=== PATIENT | male | born 1950 | race Caucasian/White ===

== ENCOUNTER → 2023-12-31 10:37 | Outpatient (REF) | payer MEDICARE, OTHER, SELFPAY ==
[2023-12-31 12:05] LABS: Hematocrit 42.7 % (39.0-52.0); Hemoglobin 14.4 g/dL (13.0-18.0); Mean Corp Hgb Conc. 33.7 g/dL (33.0-37.0); Mean Corpuscular Hgb 30.2 pg (27.0-31.0); Mean Corpuscular Volume 89.5 fL (80.0-94.0); Mean Platelet Volume 10.6 fL (7.4-10.4); Platelet Count 224 10^3/uL (130-400); Red Blood Cell Count 4.77 10^6/uL (4.70-6.10); Red Cell Dist. Width 13.6 % (11.5-14.5); White Blood Cell Count 9.2 10^3/uL (4.8-10.8)
[2023-12-31 12:37] LABS: ALT (SGPT) 21 U/L (0-50); AST (SGOT) 23 U/L (17-59); Albumin 4.1 g/dl (3.5-5.0); Alkaline Phosphatase 90 U/L (38-126); Blood Urea Nitrogen 25 mg/dl (9-20); Calcium 8.9 mg/dl (8.4-10.2); Carbon Dioxide 25 mmol/L (22-30); Chloride 108 mmol/L (98-107); Glucose 83 mg/dl (70-99); HDL Cholesterol 45 mg/dl; LDL Cholesterol, Calculated 74 mg/dl; Potassium 5.1 mmol/L (3.5-5.1); Sodium 139 mmol/L (135-145); Total Bilirubin 0.8 mg/dl (0.2-1.3); Total Cholesterol 135 mg/dl (50-199); Total Protein 7.1 g/dl (6.3-8.2); Triglyceride 81 mg/dl (10-149); Very Low Density Lipoprotein 16 mg/dl (0-30); eGFR > 60.00
[2023-12-31 13:07] LABS: PSA, Total - Screen 0.54 ng/ml (0.0-4.0)
[2023-12-31 13:48] LABS: TSH Reflex To Free T4 1.06 uIU/ml (0.47-4.68)
[2024-01-01 19:05] LABS: Hepatitis B Surface Antigen Negative (Negative)
[2024-01-01 19:23] LABS: Hepatitis B Core Ab, Total Negative (Negative); Hepatitis B Surface Antibody Negative
[2024-01-03 07:09] LABS: Quantiferon Mitogen minus NIL >10.00 IU/mL; Quantiferon NIL 0.01 IU/mL; Quantiferon Plus TB1 minus NIL 0.01 IU/mL (0.00-0.34); Quantiferon Plus TB2 minus NIL 0.01 IU/mL (0.00-0.34); Quantiferon TB Gold Plus Negative (Negative)
== END ==
LOC: REG 10:37
PROVIDERS: ATTENDING PHYSICIAN Specialist; FAMILY PHYSICIAN Family Medicine
DX: K50.10 Crohn's disease of large intestine without complications (principal); E78.2 Mixed hyperlipidemia; I10 Essential (primary) hypertension; Z00.00 Encounter for general adult medical examination without abnormal findings; Z12.5 Encounter for screening for malignant neoplasm of prostate
CPT/HCPCS: 36415; 80053; 80061; 84443; 85027; 86480; 86704; 86706; 87340; G0103

== ENCOUNTER → 2024-03-17 07:33 | Outpatient (REF) | payer MEDICARE, OTHER, SELFPAY ==
[2024-03-17 08:30] LABS: Hematocrit 44.4 % (39.0-52.0); Hemoglobin 15.2 g/dL (13.0-18.0); Mean Corp Hgb Conc. 34.2 g/dL (33.0-37.0); Mean Corpuscular Hgb 30.5 pg (27.0-31.0); Mean Corpuscular Volume 89.2 fL (80.0-94.0); Mean Platelet Volume 10.2 fL (7.4-10.4); Platelet Count 232 10^3/uL (130-400); Red Blood Cell Count 4.98 10^6/uL (4.70-6.10); Red Cell Dist. Width 13.5 % (11.5-14.5)
[2024-03-17 08:55] LABS: ALT (SGPT) 22 U/L (0-50); AST (SGOT) 23 U/L (17-59); Albumin 4.3 g/dl (3.5-5.0); Alkaline Phosphatase 90 U/L (38-126); Blood Urea Nitrogen 18 mg/dl (9-20); Calcium 9.4 mg/dl (8.4-10.2); Carbon Dioxide 24 mmol/L (22-30); Chloride 110 mmol/L (98-107); Direct Bilirubin 0.2 mg/dl (0.0-0.4); Glucose 78 mg/dl (70-99); Sodium 140 mmol/L (135-145); Total Bilirubin 0.8 mg/dl (0.2-1.3); Total Protein 7.1 g/dl (6.3-8.2); eGFR > 60.00
[2024-03-17 09:14] LABS: Erythrocyte Sed Rate 10 mm/hour (0-20)
[2024-03-17 10:24] LABS: % Eosinophils 2.5 % (0-6); % Immature Granulocytes 0.2 % (0-0.5); % Lymphocytes 46.1 % (20.5-51.1); % Monocytes 9.3 % (1.7-9.3); % Neutrophils 40.9 % (42.2-75.2); Absolute Basophils 0.1 10^3/uL (0-0.2); Absolute Eosinophils 0.2 10^3/uL (0-0.7); Absolute Lymphocytes 4.1 10^3/uL (1.2-3.4); Absolute Monocytes 0.8 10^3/uL (0.1-0.6); Absolute Neutrophils 3.7 10^3/uL (1.4-6.5); Nucleated Red Blood Cells % 0 % (-)
== END ==
LOC: RAD 07:33
PROVIDERS: ATTENDING PHYSICIAN Internal Medicine Cardiovascular Disease; FAMILY PHYSICIAN Family Medicine; REFERRING PHYSICIAN Nurse Practitioner Family
DX: I35.0 Nonrheumatic aortic (valve) stenosis (principal); R09.89 Other specified symptoms and signs involving the circulatory and respiratory systems; K50.10 Crohn's disease of large intestine without complications
CPT/HCPCS: 36415; 80048; 80076; 83993; 85025; 85652; 86140; 93880

== ENCOUNTER 2024-04-20 06:10 | Day surgery (SDC) | payer MEDICARE, OTHER, SELFPAY ==
[2024-04-20 07:04] VITALS: BP 130/71
[2024-04-20 07:12] VITALS: BMI 33.6
[2024-04-20 08:37] VITALS: BP 115/67
[2024-04-20 08:45] VITALS: BP 112/63
[2024-04-20 08:54] VITALS: BP 125/75
== END 2024-04-20 09:05 | disposition home or self-care (01) ==
LOC: SDS 06:10
PROVIDERS: ATTENDING PHYSICIAN Specialist
DX: K50.10 Crohn's disease of large intestine without complications (principal); K63.5 Polyp of colon; K57.30 Diverticulosis of large intestine without perforation or abscess without bleeding
CPT/HCPCS: 45385; 45380; 88305

== ENCOUNTER → 2024-08-17 09:14 | Outpatient (REF) | payer MEDICARE, OTHER, SELFPAY | LOC: HWRCS 09:14 | PROVIDERS: ATTENDING PHYSICIAN Internal Medicine Cardiovascular Disease; FAMILY PHYSICIAN Family Medicine | DX: I35.0 Nonrheumatic aortic (valve) stenosis (principal); R09.89 Other specified symptoms and signs involving the circulatory and respiratory systems; I10 Essential (primary) hypertension; I45.10 Unspecified right bundle-branch block; R01.1 Cardiac murmur, unspecified | CPT/HCPCS: 93306 ==

== ENCOUNTER → 2025-02-16 08:49 | Outpatient (REF) | payer MEDICARE, OTHER, SELFPAY ==
[2025-02-16 11:08] LABS: ALT (SGPT) 16 U/L (0-50); AST (SGOT) 19 U/L (17-59); Albumin 4.3 g/dl (3.5-5.0); Alkaline Phosphatase 69 U/L (38-126); HDL Cholesterol 47 mg/dl; LDL Cholesterol, Calculated 61 mg/dl; Total Protein 7.1 g/dl (6.3-8.2); Very Low Density Lipoprotein 10 mg/dl (0-30)
== END ==
LOC: RCS 08:49
PROVIDERS: ATTENDING PHYSICIAN Internal Medicine Cardiovascular Disease; FAMILY PHYSICIAN Family Medicine
DX: I35.0 Nonrheumatic aortic (valve) stenosis (principal); R09.89 Other specified symptoms and signs involving the circulatory and respiratory systems; I10 Essential (primary) hypertension; I45.10 Unspecified right bundle-branch block; R01.1 Cardiac murmur, unspecified
CPT/HCPCS: 36415; 80061; 80076; 93306

== ENCOUNTER → 2025-04-06 07:33 | Outpatient (REF) | payer MEDICARE, OTHER, SELFPAY | LOC: RCS 07:33 | PROVIDERS: ATTENDING PHYSICIAN Internal Medicine Cardiovascular Disease; FAMILY PHYSICIAN Family Medicine | DX: I35.0 Nonrheumatic aortic (valve) stenosis (principal); R09.89 Other specified symptoms and signs involving the circulatory and respiratory systems; R07.89 Other chest pain | CPT/HCPCS: 93017 ==

== ENCOUNTER → 2025-04-11 12:36 | Outpatient (REF) | payer MEDICARE, OTHER, SELFPAY ==
[2025-04-11 14:23] LABS: Hematocrit 40.8 % (39.0-52.0); Hemoglobin 13.5 g/dL (13.0-18.0); Mean Corp Hgb Conc. 33.1 g/dL (33.0-37.0); Mean Corpuscular Volume 89.5 fL (80.0-94.0); Platelet Count 222 10^3/uL (130-400); Red Cell Dist. Width 14.0 % (11.5-14.5)
[2025-04-11 14:25] LABS: Absolute Neutrophils -Man Diff 2.7 10^3/uL (1.4-6.5); Platelets Checked Yes
[2025-04-11 14:26] LABS: Normal RBC Morphology Yes; Total Cells Counted 100
[2025-04-11 15:09] LABS: ALT (SGPT) 82 U/L (0-50); AST (SGOT) 52 U/L (17-59); Albumin 4.0 g/dl (3.5-5.0); Alkaline Phosphatase 91 U/L (38-126); Blood Urea Nitrogen 16 mg/dl (9-20); Calcium 8.6 mg/dl (8.4-10.2); Carbon Dioxide 25 mmol/L (22-30); Chloride 108 mmol/L (98-107); Glucose 91 mg/dl (70-99); Potassium 4.5 mmol/L (3.5-5.1); Sodium 138 mmol/L (135-145); Total Protein 7.0 g/dl (6.3-8.2); eGFR > 60.00
== END ==
LOC: SDSPAT 12:36
PROVIDERS: ATTENDING PHYSICIAN Student in an Organized Health Care Education/Training Program; FAMILY PHYSICIAN Family Medicine; REFERRING PHYSICIAN Internal Medicine Cardiovascular Disease
DX: I35.0 Nonrheumatic aortic (valve) stenosis (principal)
CPT/HCPCS: 36415; 80053; 85025; 93005

== ENCOUNTER → 2025-04-14 10:49 | Outpatient (REF) | payer MEDICARE, OTHER, SELFPAY | LOC: RAD 10:49 | PROVIDERS: ATTENDING PHYSICIAN Student in an Organized Health Care Education/Training Program; FAMILY PHYSICIAN Family Medicine | DX: I35.0 Nonrheumatic aortic (valve) stenosis (principal); R01.1 Cardiac murmur, unspecified; I10 Essential (primary) hypertension | CPT/HCPCS: 74174; 75572; Q9967 ==

== ENCOUNTER 2025-04-19 10:46 | Day surgery (SDC) | payer MEDICARE, OTHER, SELFPAY ==
[2025-04-12 11:39] VITALS: BMI 35.6
[2025-04-19] VITALS (10 sets, daily range): BP systolic 117–142; BP diastolic 66–78
[2025-04-19] MEDS: NSS 318 ML IV (13:12)
--- NOTE | 2025-04-19 17:06 | ITS.CL.PN ---
Plc Technician - Procedure Note
Procedure
Procedure Note:
CARDIAC CATHETERIZATION REPORT
Date of Procedure: 04/19/2025
Referring: Dr. Harshal Juels MD
Indication: severe aortic stenosis
PROCEDURE(S)
1. right heart catheterization
2. coronary angiography
ACCESS
1. 6F right radial artery (closure: radial band)
2. 5F right antecubital vein (closure: manual hemostasis)
CATHETERS
1. 5F Pullman-Khoa
2. 6F JR4
3. 6F JL4
MODERATE SEDATION: 25 minutes of moderate sedation was utilized. An independent medical laboratory manager was present to assist with and help manage the patient's level of consciousness and physiologic status.
HEMODYNAMIC DATA
AO 138/81 (mean 104) mmHg
RA 13 mmHg
RV 54/13 (EDP 17) mmHg
PA 49/26 (mean 35) mmHg
PCWP 24 mmHg
SaO2 94.5%
SvO2 72.0%
Hb 13.9 g/dL
CO/CI 6.51/2.94 L/min/m2
SVR 1117 dsc*-5
PVR 1.7 Wood units
CORONARY ANGIOGRAPHY
Dominance: Right
LM: Large, normal
LAD: Large vessel giving rise to small D1 and moderate caliber D2 before wrapping around the apex. There are trivial luminal irregularities only.
LCx: Large vessel giving rise to a moderate caliber OM1/ramus, small OM2, large OM3, and small LPL branch. There are trivial luminal irregularities only.
RCA: Large vessel with a high anterior takeoff giving rise to a small RPDA and 2 small RPL branches. There is a focal 30% stenosis in the proximal vessel and otherwise trivial luminal irregularities only.
RADIATION: dose 368 mGy; DAP 24.4 Gy*cm2; fluoroscopy time 6.7 min
CONCLUSIONS
1. Nonobstructive coronary artery disease as described in a right dominant system
2. Moderately elevated biventricular filling pressures, moderate postcapillary pulmonary hypertension, normal cardiac output
RECOMMENDATIONS
1. Primary prevention of coronary artery disease
2. Proceed with workup for aortic valve replacement
Copy to: Dr. Harshal Jules MD (gi tech); [ ] (PCP)
Signed: Дмитрий Pride MD, PhD
== END 2025-04-19 17:50 | disposition home or self-care (01) ==
LOC: CATH 10:46
PROVIDERS: ATTENDING PHYSICIAN Student in an Organized Health Care Education/Training Program; FAMILY PHYSICIAN Family Medicine; OTHER PHYSICIAN Internal Medicine Cardiovascular Disease
DX: I25.10 Atherosclerotic heart disease of native coronary artery without angina pectoris (principal); I35.0 Nonrheumatic aortic (valve) stenosis; I27.20 Pulmonary hypertension, unspecified; E78.5 Hyperlipidemia, unspecified; E66.9 Obesity, unspecified; I10 Essential (primary) hypertension; K50.90 Crohn's disease, unspecified, without complications; Z79.82 Long term (current) use of aspirin; Z79.899 Other long term (current) drug therapy; R74.01 Elevation of levels of liver transaminase levels; I44.0 Atrioventricular block, first degree; I45.10 Unspecified right bundle-branch block; Z86.0100 Personal history of colon polyps, unspecified; D72.829 Elevated white blood cell count, unspecified; I65.29 Occlusion and stenosis of unspecified carotid artery; H91.90 Unspecified hearing loss, unspecified ear; Z87.891 Personal history of nicotine dependence
CPT/HCPCS: 99152; 99153; 93456; C1894

== ENCOUNTER 2025-05-27 05:18 | Inpatient (IN) | payer MEDICARE, OTHER, SELFPAY ==
[2025-05-16 08:27] VITALS: BMI 34.4
[2025-05-16 09:05] LABS: Hematocrit 43.3 % (39.0-52.0); Hemoglobin 14.3 g/dL (13.0-18.0); Mean Corp Hgb Conc. 33.0 g/dL (33.0-37.0); Mean Corpuscular Volume 89.1 fL (80.0-94.0); Platelet Count 178 10^3/uL (130-400); Red Cell Dist. Width 14.2 % (11.5-14.5)
[2025-05-16 09:06] LABS: INR 1.01; PT 13.6 Sec (11.4-14.6)
[2025-05-16 09:07] LABS: Urine Character Clear (Clear)
[2025-05-16 09:18] LABS: Urine Red Blood Cell 0-2 /HPF (0-2); Urine Squamous Cell 0-2 /LPF (Few)
[2025-05-16 09:20] LABS: Glycohemoglobin (HgbA1c) 5.3 % (4.0-5.6)
[2025-05-16 09:28] LABS: Nucleated Red Blood Cells % 0 % (-)
[2025-05-16 09:41] LABS: ALT (SGPT) 30 U/L (0-50); AST (SGOT) 26 U/L (17-59); Albumin 4.4 g/dl (3.5-5.0); Alkaline Phosphatase 78 U/L (38-126); Blood Urea Nitrogen 22 mg/dl (9-20); Calcium 9.0 mg/dl (8.4-10.2); Carbon Dioxide 24 mmol/L (22-30); Chloride 112 mmol/L (98-107); Estimated Creatinine Clearance 71 ml/min; Glucose 100 mg/dl (70-99); Potassium 4.2 mmol/L (3.5-5.1); Sodium 143 mmol/L (135-145); Total Protein 7.4 g/dl (6.3-8.2); eGFR > 60.00
--- NOTE | 2025-05-16 09:47 | CM ---
Met with Mr. Roque in [facility]. He states prior to admission he resides with his spouse in a two story home with one step to enter. He states he has a full flight of steps to get to bedroom/full bathroom. He state he has a powder room on the first
floor. He states prior to admission he was independent with ambulation and adls. He states he does not have any DME in the home. He states he has a prescription plan and uses [facility]. He states his spouse will be h ome to assist in his care
if needed. The discharge plan is to return home withh is spouse and a home visit by the Transitional Care Nurse when medically stable.
We reviewed pre-op and post-op routines. We reviewed the shower instructions. He has the soap, shower instructions and the Cardiothoracic Surgery Educational Booklet. We also reviewed restrictions including sternal precautions and driving
restrictions. We discussed a home visit by the Transitional Care Nurse. He is agreeable to a home visit. The plan is for AVR on Tuesday, May 27, 2025.
[2025-05-27] VITALS (16 sets, daily range): BP systolic 97–153; BP diastolic 53–80; BMI 33.8
[2025-05-27] MEDS: LOPRESSOR 25 MG PO (05:37)
--- NOTE | 2025-05-27 05:37 | PTCARENOTE ---
yellow wedding band removed pre op, given to pt's .
[2025-05-27] MEDS: MAGNESIUM OXIDE 400 MG PO (05:38)
[2025-05-27] MEDS: PROTONIX 40 MG PO (05:38)
[2025-05-27] MEDS: BACTROBAN 2% OINTMENT 1 APPLIC NASAL ×2 (05:38→19:43)
--- NOTE | 2025-05-27 05:54 | PTCARENOTE ---
Pt admitted into 2265. Admission questions and med rec complete. VS and wt obtained. pt clipped and washed w. CHG wipes. ABO sent. Pre op meds given. awaiting CVOR
--- NOTE | 2025-05-27 06:30 | W.CVOR.SURPR ---
CVOR Surgeon Immed Pre Op
-
I have examined this patient prior to performance of the scheduled procedure.
The patient's condition is unchanged from the time of the dictated/written History and
Physical and the patient is able to undergo the scheduled procedure.
AVR (bio) +/- KYRA E
[2025-05-27 07:32] LABS: ACT+ - POC 129 Seconds (82-134)
[2025-05-27 07:49] LABS: Urine Character Clear (Clear)
[2025-05-27 08:26] LABS: Urine Squamous Cell 0-2 /LPF (Few)
[2025-05-27 08:27] LABS: Urine White Cell 0-2 /HPF (0-5)
[2025-05-27 08:50] LABS: ACT+ - POC 726 Seconds (82-134)
[2025-05-27 09:09] LABS: B.E. - POC -2.3 mmol/L; Glucose - POC 106 mg/dl (70-99); HCO3 - POC 24 mmol/L (21-28); Hematocrit - POC 35 % PCV (42-52); Hemodilution- POC No; Hemoglobin Calculated - POC 11.8; Ionized Calcium - POC 1.24 mmol/L (1.15-1.33); Lactate - POC 0.90 mmol/L (0.36-0.75); O2 Saturation %Calculated-POC 99.4 % (94-98); PCO2 - POC 46 mmHg (35-48); PO2 - POC 172 mmHg (83-108); POC Comment PRE; Potassium - POC 4.2 mmol/L (3.5-5.1); Sodium - POC 141 mmol/L (136-145); Specimen Type - POC Arterial; pH - POC 7.32 (7.35-7.45)
--- NOTE | 2025-05-27 09:14 | CM ---
Reviewed chart. Mr. Roque is in the operating room today. Prior to admission he resides with his spouse in a two story home with one step to enter. He has a full flight of steps to get to bedroom/full bathroom. He has a powder room on the first
floor. Prior to admission he was independent with ambulation and adls. He does not have any DME in the home. He has a prescription plan and uses [facility]. His spouse will be home to assist in his care if needed. The discharge plan is to
return home with is spouse and a home visit by the Transitional Care Nurse when medically stable.
[2025-05-27 09:20] LABS: ACT+ - POC 567 Seconds (82-134)
[2025-05-27 09:53] LABS: ACT+ - POC 533 Seconds (82-134)
[2025-05-27 09:56] LABS: B.E. - POC 2.3 mmol/L; Glucose - POC 136 mg/dl (70-99); HCO3 - POC 27 mmol/L (21-28); Hematocrit - POC 31 % PCV (42-52); Hemodilution- POC Yes; Hemoglobin Calculated - POC 10.7; Ionized Calcium - POC 1.05 mmol/L (1.15-1.33); Lactate - POC < 0.30 mmol/L (0.36-0.75); O2 Saturation %Calculated-POC 100.0 % (94-98); PCO2 - POC 41 mmHg (35-48); PO2 - POC 437 mmHg (83-108); POC Comment CPB; Potassium - POC 5.4 mmol/L (3.5-5.1); Sodium - POC 141 mmol/L (136-145); Specimen Type - POC Arterial; pH - POC 7.43 (7.35-7.45)
[2025-05-27 10:17] LABS: B.E. - POC 1.4 mmol/L; Glucose - POC 204 mg/dl (70-99); HCO3 - POC 25 mmol/L (21-28); Hematocrit - POC 32 % PCV (42-52); Hemodilution- POC Yes; Hemoglobin Calculated - POC 10.8; Ionized Calcium - POC 1.08 mmol/L (1.15-1.33); Lactate - POC 0.70 mmol/L (0.36-0.75); O2 Saturation %Calculated-POC 99.9 % (94-98); PCO2 - POC 33 mmHg (35-48); PO2 - POC 285 mmHg (83-108); POC Comment CPB; Potassium - POC 5.2 mmol/L (3.5-5.1); Sodium - POC 140 mmol/L (136-145); Specimen Type - POC Arterial; pH - POC 7.48 (7.35-7.45)
[2025-05-27 10:35] LABS: ACT+ - POC 469 Seconds (82-134)
[2025-05-27 10:44] LABS: B.E. - POC -1.9 mmol/L; Glucose - POC 168 mg/dl (70-99); HCO3 - POC 21 mmol/L (21-28); Hematocrit - POC 32 % PCV (42-52); Hemodilution- POC Yes; Hemoglobin Calculated - POC 10.9; Ionized Calcium - POC 1.67 mmol/L (1.15-1.33); Lactate - POC 1.46 mmol/L (0.36-0.75); O2 Saturation %Calculated-POC 100.0 % (94-98); PCO2 - POC 29 mmHg (35-48); PO2 - POC 333 mmHg (83-108); POC Comment WARM; Potassium - POC 4.8 mmol/L (3.5-5.1); Sodium - POC 138 mmol/L (136-145); Specimen Type - POC Arterial; pH - POC 7.47 (7.35-7.45)
[2025-05-27 10:49] LABS: ACT+ - POC 123 Seconds (82-134)
[2025-05-27 10:57] LABS: B.E. - POC -4.5 mmol/L; Glucose - POC 168 mg/dl (70-99); HCO3 - POC 21 mmol/L (21-28); Hematocrit - POC 32 % PCV (42-52); Hemodilution- POC Yes; Hemoglobin Calculated - POC 11.0; Ionized Calcium - POC 1.31 mmol/L (1.15-1.33); Lactate - POC 2.27 mmol/L (0.36-0.75); O2 Saturation %Calculated-POC 95.3 % (94-98); PCO2 - POC 38 mmHg (35-48); PO2 - POC 81 mmHg (83-108); POC Comment POST; Potassium - POC 3.9 mmol/L (3.5-5.1); Sodium - POC 140 mmol/L (136-145); Specimen Type - POC Arterial; pH - POC 7.35 (7.35-7.45)
--- NOTE | 2025-05-27 11:26 | W.PN.CT.SURG ---
CT Surgery Operative Note
-
CARDIAC SURGERY OPERATIVE REPORT
Preoperative Diagnosis: Aortic valve stenosis with bicuspid morphology, Type 0
Postoperative Diagnosis: Same
Procedure(s) Performed:
1. Upper hemisternotomy, to 3rd ICS
2. Percutaneous right common femoral venous access percutaneously under FIONA guidance
3. Surgical aortic valve replacement [29 mm bioprosthesis]
4. Placement of temporary ventricular and atrial pacing wires
5. Transesophageal echocardiography
Date of Surgery: 05/27/25
Comorbidities:
1. Bicuspid aortic valve morphology, type 0, there was a diffuse/raphae which makes it possibly a type I
2. Hypertension
3. Hyperlipidemia
4. History of Crohn's disease
5. Symptomatic severe aortic valve stenosis
Attending Surgeon: Raymond Vizcarra MD, MS
Scrub and Circulating RNs: Jevon Sampson RN, Magnus Zaidi RN
Assistants: Lou Márquez PA-C (was present to professional nursing assistant, manage suture, exposure and close wound under my direction)
Anesthesiology: Olegario Gonzalez MD and Darryn Barton CRNA
Teller Vault: Bill Ward CCP
Anesthesia: GETA
EBL: per perfusion records
Products: None
CPB Time: 91 minutes
Aortic Cross Clamp Time: 74 minutes
Indication(s) for Procedures: This is a 75-year-old male who is otherwise healthy. He is known to have severe aortic valve stenosis and was found to have a bicuspid morphology. He is unable to complete a stress test with a Kendrick protocol. Given
his bicuspid valve morphology and robust baseline status, he was referred to surgery after discussing in a multidisciplinary team setting. He was offered surgical aortic valve replacement.
Aortic Valve Description: Bicuspid valve, appeared mostly like a type 0 valve but there was a fused calcified small raphae between the right and left coronary cusp. Both coronary ostia within normal anatomic positions. Almost the 180/180 coronary
location.
Findings: His left ventricular ejection fraction preoperatively was normal at 60%. Following surgery his EF remained the same at 60% with no new regional wall motion abnormalities. His bicuspid valve was excised and there was significant
calcification underneath the left right cusp towards the muscular septum of the ventricle. This was debrided. A small rent was made towards the noncoronary cusp at the aorto mitral curtain towards the mitral valve annulus. This was repaired with
a pledgeted 4-0 suture and incorporated into the annular sutures. A total of 14 nonpledgeted 2 Ethibond sutures were placed circumferentially. This secured a 29 mm bioprosthetic surgical valve into place with core knots. After coming off of
cardiopulmonary bypass there was a period in which she did entrained some air into the RCA, we reinstituted cardiopulmonary bypass for a very short period time and drove the pressure up with good effect. His ventricular function bilaterally was
normal thereafter. FIONA evaluation of the bioprosthetic valve revealed no paravalvular leak and no intra valvular AI and the mean gradient across the valve was 3 to 4 mmHg. Ventricular function was normal. He did not require any blood products, he
did not require inotropic support, and he was in a AV paced rhythm at the inclusion the case using temporary wires.
Specimen(s): Aortic valve leaflets.
Prosthesis:
1. 29 mm Cary Inspiris Resilia aortic valve, serial #[id number]
Description of Procedure: The patient was taken to the operating room. Their identity and procedure to be performed were verified and they were positioned supine on the operating table. Induction via general anesthesia with endotracheal intubation
was performed and central venous access and arterial monitoring were inserted. A preoperative transesophageal echocardiogram was performed to assess cardiac function and valvular function. The patient was then prepped and draped from chin to feet in
a sterile fashion. A preoperative time-out was performed with all members of the team present. Using ultrasound guidance and Seldinger technique with a micropuncture needle and wire, access to his femoral vein on the right side was performed and a
wire was placed into the SVC under FIONA guidance. An upper midline chest incision was performed along with allen sternotomy. The innominate vein was isolated. Full heparinization was given (a total of 50,000 units). We created a pericardial well. The
aortic cannulation site was chosen where it was soft, pliable, and free of calcium. Venous cannulation was done under FIONA guidance after serial dilations. The arterial cannula was inserted in the ascending aorta also using open Seldinger technique
and FIONA verification of the wire in the descending thoracic aorta. The arterial cannula line had an appropriate bounce and correlating pressures with test dosing. Next, a root vent/antegrade cannula was inserted into the ascending aorta. The ACT was
confirmed to be over 400 and retrograde autologous priming was performed before commencing cardiopulmonary bypass. The pulmonary artery was away from the aorta to facilitate a clamp site and aortotomy. A left ventricular vent was placed
at the right superior pulmonary vein. The aortic cross-clamp was applied after decreasing the flow on the bypass and mean arterial pressure. A total of 1.2L initial dose of antegrade Del-Nido cardioplegia solution was given and planned for re-dosing
every 75 minutes as necessary. There was rapid electro-mechanical arrest of the heart at 300 cc of cardioplegia. The left ventricle was observed for distention on echocardiogram and manual palpation. Cold slush was placed into the pericardial well
and cooled to 34 degrees centigrade.
Carbon dioxide was used to flood the field. We manually identified the location of the right coronary take off. An aortotomy was made approximately 2cm above the sinotubular junction. The location of both left and right coronary vessels were
visualized in the root.The leaflets were excised and sent for pathological assessment. The annulus was debrided of any calcium being mindful of the annulus and membranous septum. The root and left ventricular outflow tract were thoroughly irrigated
to remove any debris. A total of 14 Non-pledgeted 2-0 ethibond annular sutures were placed [id number] circumferentially. These were brought through the sewing cuff of the prosthetic valve which as then parachuted into place. The left and right
coronary ostia were visualized and were unobstructed by the valve. A Cor-Knot device was used to secure the annular sutures. The valve was inspected and was well seated. The aortotomy was approximated with 4-0 prolene in two layers. De-airing
maneuvers were performed and temporary bipolar ventricular pacing wires were placed on the base of the right ventricle. The patient was placed in a Trendelenburg position and flows on bypass were lowered. The aortic cross clamp was removed and flows
were slowly brought back up. The aortotomy appeared hemostatic. Transesophageal echocardiography revealed no paravalvular leak and appropriate prosthetic function. Once de-airing was satisfactory, the PA and root vents were removed. After verifying
acceptable parameters, we initiated weaning from cardiopulmonary bypass. Once we were off cardiopulmonary bypass, the venous cannula was clamped and removed after replacing the wire under FIONA guidance to maintain a track for emergencies. A test dose
of protamine was administered and the patient was monitored for any adverse reaction before resuming protamine. Once half of the protamine dose was delivered, pump suckers were turned off and the systolic blood pressure was lowered for aortic
decannulation. The aortic cannula was removed and pursestrings were tied down. All cannulation sites were oversewn with a 4-0 prolene. The aortotomy suture line was inspected and hemostasis was confirmed. Mediastinal hemostasis was obtained. 1 x
19Fr Bear drains were placed within the pericardium. The sternum was approximated with 2 #7 and 2 # 8 double stainless steel wires. Fascia was approximated with #1 vicryl suture. The subcutaneous, dermis and epidermis were closed in layers in a
running fashion. The femoral venous access site was closed with a large buttressed pursestring. The skin wound was cleansed and dressed.
All instrument, sponge, and needle counts were confirmed to be correct x 2 at the end of the operation. The patient was transferred to the cardiac intensive care unit in critical but stable condition.
I, Dr. Raymond Vizcarra, was present, scrubbed for, and performed all critical elements of this procedure.
Raymond Vizcarra MD, MS
Cardiothoracic Surgeon
[facility]
This operative dictation was created using the [employer] dictation system. Please excuse any grammatical, typographical, or 'sound alike' errors
--- NOTE | 2025-05-27 11:30 | PTCARENOTE ---
Patient received from CVOR at 1130. Intubated and sedated. 100% AV Paced on CM, see work list for temporary pacer box settings - AV wires connected; heart tones audible, trace edema, pulses palpable. #8.0 ETT 23 @ the R lip, see work list for
settings and adjustments, lungs clear bilaterally, no cough, oral care completed. Abdomen SNT, obese, hypoactive BS. Elliott catheter in place draining clear, yellow urine. RIJ Cordis/Hanover-trudy catheter @ [address], L radial art line, L forearm PIV;
all applicable lines leveled, zeroed, and flushed. On Cardene, precedex and insulin on arrival. See work list for titration and nursing intervention details.
[2025-05-27] MEDS: ANCEF 10 IV ×2 (11:34)
[2025-05-27] MEDS: NSS 500 IV (11:35)
[2025-05-27 11:36] LABS: Glucose - Point of Care 123 mg/dl (70-99)
[2025-05-27 11:54] LABS: B.E. -4.9 mmol/L; HCO3 21.1 mmol/L (21-28); O2 Saturation % 99.3 % (94-98); PCO2 42 mmHg (35-48); PO2 150 mmHg (83-108); Potassium 3.9 mMOL/L (3.5-5.1); Sodium 137 mMOL/L (136-145)
[2025-05-27 11:56] LABS: INR 1.47; PT 18.1 Sec (11.4-14.6)
[2025-05-27 11:57] LABS: APTT 36.0 Sec (23.4-35.0)
[2025-05-27] MEDS: KCL 50 IV ×2 (12:03→13:06)
[2025-05-27 12:13] LABS: Blood Urea Nitrogen 18 mg/dl (9-20); Estimated Creatinine Clearance 70 ml/min; Glucose 128 mg/dl (70-99); Magnesium 2.8 mg/dl (1.6-2.3)
[2025-05-27] MEDS: TYLENOL PO ×2 (12:17→21:29)
[2025-05-27 12:22] LABS: Hematocrit 34.5 % (39.0-52.0); Hemoglobin 11.7 g/dL (13.0-18.0); Platelet Count 130 10^3/uL (130-400)
[2025-05-27 12:28] LABS: Glucose - Point of Care 129 mg/dl (70-99)
[2025-05-27 13:18] LABS: Glucose - Point of Care 139 mg/dl (70-99)
[2025-05-27 14:13] LABS: Glucose - Point of Care 113 mg/dl (70-99)
--- NOTE | 2025-05-27 14:31 | W.PN.CD ---
Addendum entered and electronically signed by Nadeem Arzola MD 05/27/25 18:56:
I saw and examined the patient.
The RN CASE MANAGEMENT's note was reviewed and I agree with the note.
Comment: Patient of Dr. Saldivars. Underwent mini AVR with Dr. Vizcarra. He was just extubated and feeling well. Remains pacing on telemetry. Continue current postop day #0 care.
Original Note:
Today's Communication / Plan
-
continue post-op care per CTS.
Impression / Plan
-
Severe - s/p AVR 05/27/25.
- post op care per CT surgery.
- intubated and sedation weaning off.
- AV pacing/V pacing on tele and off drips.
- trend post-op anemia.
HTN - stable, off drips.
HLD - on Lipitor, continue.
RBBB - chronic, stable.
Crohn's disease - stable on Skyrizi.
Physical Exam
Vital Signs/Labs
Vital Signs
Temp Pulse Resp BP Pulse Ox
98.6 F 68 21 97/53 95
05/27/25 14:00 05/27/25 14:30 05/27/25 14:30 05/27/25 14:01 05/27/25 14:30
05/26/25 05/27/25 05/28/25
06:59 06:59 06:59
Actual Weight 228 lb 13.437 oz
05/27/25 11:32
PT 18.1 Sec (11.4-14.6) H 05/27/25 11:32
INR 1.47 05/27/25 11:32
APTT 36.0 Sec (23.4-35.0) H 05/27/25 11:32
Magnesium 2.8 mg/dl (1.6-2.3) H 05/27/25 11:32
Physical Exam
Constitutional: No acute distress
EENT: Anicteric
Cardiovascular: Rhythm & rate is regular
Respiratory: Respiratory effort normal and Lungs clear to auscul. (anteriorly on vent/intubated)
GI: Soft and Normal bowel sounds
Neuro/Psych: AO x 3
Other: Skin (warm, dry )
Data Reviewed
-
Date of Service: May 27, 2025
Medical Decision Making: Reviewed Test Results
EKG: Tracing Personally Visualized and interpreted
Labs: Labs Reviewed by me
Old Records: Reviewed
[2025-05-27] MEDS: LR 250 ML IV ×2 (14:43→16:22)
[2025-05-27] MEDS: PACERONE PO ×2 (14:47→21:29)
[2025-05-27] MEDS: NEURONTIN PO (14:47)
--- NOTE | 2025-05-27 14:53 | CON.INTV ---
Consultation
Consultation Request
Date/Time Consultation Requested: 05/27/2024
Date/Time Consultation Performed: 05/27/2025
Requesting Provider: Dr. Vizcarra
Performing Provider: Dr. Reagan Rodgers
Reason for Consultation: Status post surgical aortic valve replacement
Medical History
Past Medical History
Past Medical History: Other (See assessment and plan)
Family History
Family History: Unable to Obtain
Allergies / Home Medications
Allergies
Allergy/AdvReac Type Severity Reaction Status Date / Time
infliximab (From Remicade) Allergy Hives Verified 04/08/25 14:10
Home Medications
�Medication �Instructions �Recorded �Confirmed �Last Taken �Type
cyanocobalamin (vitamin B-12) 1,000 mcg PO DAILY Supplement 04/20/24 05/27/25 05/20/25 History
1,000 mcg tablet (Vitamin B-12) 0800
lisinopril 10 mg tablet 10 mg PO DAILY Blood Pressure 04/20/24 05/27/25 05/26/25 History
0800
risankizumab-rzaa 360 mg/2.4 mL 150 mg SC Q8W Crohn's disease 04/20/24 05/27/25 04/04/25 08:00 History
(150 mg/mL) subcut wearable
injector (Skyrizi)
ascorbic acid (vitamin C) 500 mg 500 mg PO DAILY Supplement 04/11/25 05/27/25 05/20/25 History
tablet 0800
cholecalciferol (vitamin D3) 125 125 mcg PO DAILY Supplement 04/11/25 05/27/25 05/20/25 History
mcg (5,000 unit) tablet 0800
atorvastatin 40 mg tablet 40 mg PO QPM High Cholesterol 05/27/25 05/27/25 05/26/25 History
2000
Review of Systems
-
Unable to Obtain full review of systems at this time due to: Patient Intubation
Vitals / Labs / Diagnostic Testing
Vital Signs
Temp Pulse Resp BP Pulse Ox
98.6 F 71 18 97/53 96
05/27/25 14:00 05/27/25 14:45 05/27/25 14:45 05/27/25 14:01 05/27/25 14:45
Lab Data
05/27/25 11:32
Laboratory Results
05/27/25 05/27/25
11:32 11:34
PT 18.1 H
INR 1.47
APTT 36.0 H
pH 7.31 L
pCO2 42
pO2 150 H
HCO3 21.1
O2 Delivery Level
Diagnostic Testing:
Physical Exam
-
HEENT: Normocephalic
Cardiovascular: S1/S2
Respiratory: Clear and Other (Chest tube in place without airleak or excessive drainage)
GI: Soft and Non Distended
Neurology: Other (Sedated on mechanical ventilation)
Skin: Warm
General: Comfortable
Assessment
-
Status post surgical aortic valve replacement 05/27/2025-Dr. Vizcarra
Postoperative mechanical ventilation
Conditions present prior admission:
Bicuspid aortic valve morphology
Severe aortic stenosis
Hyperlipidemia
Hypertension
History of Crohn's disease.
Assessment and plan:
He is doing well postop-currently on mechanical ventilation and appears comfortable.
ABG reviewed: Adequate oxygenation and ventilation
Continue SIMV mode with no change
Spontaneous breathing trial per protocol once sedation wears off.
Anemia noted-no evidence of acute bleeding
Follow H&H serially
Hemodynamics -acceptable off vasopressors/inotropes
Normal renal function
Adequate urinary output
Chest tube with no excessive drainage-no air leak.
Chest x-ray reviewed: With no pneumothorax or fluid collections.
Remain nothing by mouth
Head of the bed elevation
History of chron's disease on Skyrizi
Glycemic control per protocol
DVT prophylaxis when safe from the surgical perspective.
Critical care statement: A total of 32 minutes of critical care time was provided for this patient today. This includes management of unstable vital signs, evaluation of the patient at bedside, reviewing the patient's pertinent medical records
including ventilator settings, arterial blood gases, radiographs, microbiology, laboratory evaluations and discussion with primary team, critical care nursing, and respiratory therapy.
[2025-05-27 15:07] LABS: Glucose - Point of Care 105 mg/dl (70-99)
--- NOTE | 2025-05-27 15:35 | PTCARENOTE ---
Precedex weaned off, Cardene off and then restarted for SBPs 110's. CO/CI as recorded, CVPA aware, 250 LR bolus given. CPAP at 1530.
[2025-05-27 15:37] LABS: Hematocrit 36.6 % (39.0-52.0); Hemoglobin 12.8 g/dL (13.0-18.0); Platelet Count 153 10^3/uL (130-400)
[2025-05-27] MEDS: ZOFRAN 4 MG IV (15:45)
[2025-05-27 16:08] LABS: Glucose - Point of Care 95 mg/dl (70-99)
[2025-05-27 16:13] LABS: B.E. -5.5 mmol/L; HCO3 18.0 mmol/L (21-28); O2 Saturation % 97.9 % (94-98); PCO2 29 mmHg (35-48); PO2 90 mmHg (83-108)
--- NOTE | 2025-05-27 16:26 | PTCARENOTE ---
Patient extubated to 6LNC at 1620. Hypotensive to the 70's, LR bolus given, BP to 90-100's. Patient satting 96% on 6LNC at this time.
--- NOTE | 2025-05-27 16:29 | RESPNOTE ---
1620 extubated to 6 liter NC without incident. 97% HR 66
[2025-05-27] MEDS: LOW STRENGTH ASPIRIN 81 MG PO (17:00)
[2025-05-27] MEDS: DILAUDID 0.25 MG IV ×2 (17:07→22:17)
[2025-05-27] MEDS: ANCEF 5 IV (17:09)
[2025-05-27] MEDS: LIPITOR 40 MG PO (18:03)
[2025-05-27 18:05] LABS: Glucose - Point of Care 119 mg/dl (70-99)
[2025-05-27] MEDS: OFIRMEV 100 IV (18:23)
[2025-05-27] MEDS: DILAUDID 0.5 MG IV (19:15)
[2025-05-27] MEDS: SENOKOT PO (19:42)
[2025-05-27] MEDS: CARDENE 200 IV (20:00)
[2025-05-27 20:06] LABS: Glucose - Point of Care 116 mg/dl (70-99)
--- NOTE | 2025-05-27 20:15 | PTCARENOTE ---
Patient received resting in bed. Patient A+A+Ox3. No neurological deficits noted. No c/o headache, dizziness or lightheadedness. O2 at 6L via NC. SpO2 96%. One Mediastinal chest tube - Intact and patent - 10 ml red drainage - No air leak.
Dressing intact. AV Pacing. Heart rate 66. Temporary Epicardial Pacemaker - DDI mode - A 66/15/0.5 V 66/20/2.0 Patient with no c/o chest pain, pressure or discomfort. Abdomen soft, round, nontender. Hypoactive bowel sounds. No BM.
Generalized edema. Elliott catheter - Temperature sensing - Light mo, yellow urine - Outputs as documented. Bilateral upper extremities/hands with greater edema. Positive, palpable pulses. Sternal incision intact - Surgical adhesive - Open to
air. Right groin dressing intact. Patient continues on Cardene gtt and Insulin gtt. Right I.J. Cordis with Brookesmith Khoa catheter. Left radial arterial line. A-Line, PAP, CVP pressure bag/saline flush - Flush without difficulty - Zeroed and
calibrated - Waveform within normal limits. C.O. 4.32 C.I. 1.97 SVR 1018 PAP 27/15 (20) CVP 8. Assessment as documented.
[2025-05-27 21:14] LABS: B.E. -5.7 mmol/L; HCO3 19.4 mmol/L (21-28); O2 Saturation % 98.3 % (94-98); PCO2 36 mmHg (35-48); PO2 96 mmHg (83-108); Potassium 5.6 mMOL/L (3.5-5.1)
[2025-05-27] MEDS: NEURONTIN 100 MG PO (21:36)
[2025-05-27] MEDS: ROXICODONE 5 MG PO (21:37)
[2025-05-27 21:58] LABS: Glucose - Point of Care 114 mg/dl (70-99)
[2025-05-27] MEDS: SODIUM BICARBONATE 50 MEQ IV (22:05)
[2025-05-27 22:09] LABS: Potassium 5.6 mmol/L (3.5-5.1)
[2025-05-27] MEDS: CALCIUM GLUCONATE 100 IV (22:35)
[2025-05-27] MEDS: NITROGLYCERIN PREMIX 250 IV (22:45)
[2025-05-27] MEDS: LOKELMA 10 GRAM PO (23:00)
--- NOTE | 2025-05-27 23:30 | PTCARENOTE ---
ABG with Potassium and Ionized Calcium sent. Mixed Venous sent. Roxicodone 5mg PO and IV Dilaudid 0.25mg for pain management. Sodium Bicarbonate 50 mEq IV administered per PA order. Calcium Gluconate 2,000mg/100ml IV administered per PA order.
Nitro gtt started. Titrate Cardene gtt. SpO2 92%. Potassium level 5.6. Lokelma 10 gram PO Now. Patient administered medication. Shortly after taking Lokelma - Patient vomited. 150ml Clear to whitish, slightly yellowish liquid secretions. No
further emesis. No c/o nausea. Patient resting in bed. Dozing intermittently. C.O. 4.30 C.I. 1.97 SVR 1004 PAP (20) CVP 10. No further changes from previous assessment.
[2025-05-28] VITALS (25 sets, daily range): BP systolic 90–140; BP diastolic 45–62; PULSE 69; O2SAT 96–97; BMI 34.9
[2025-05-28 00:25] LABS: Glucose - Point of Care 133 mg/dl (70-99)
[2025-05-28] MEDS: DILAUDID 0.5 MG IV (00:30)
[2025-05-28 00:33] LABS: B.E. -4.4 mmol/L; HCO3 20.2 mmol/L (21-28); O2 Saturation % 92.8 % (94-98); PCO2 35 mmHg (35-48); PO2 62 mmHg (83-108); Potassium 5.4 mMOL/L (3.5-5.1)
[2025-05-28] MEDS: LR 250 ML IV (00:49)
[2025-05-28] MEDS: DILAUDID 0.25 MG IV (01:27)
--- NOTE | 2025-05-28 01:30 | PTCARENOTE ---
ABG collected and sent. Patient A+A+Ox3. IV Dilaudid 0.5 mg given for pain management. G bath and linens changed. Patient placed on Midflow Oxygen 15L by respiratory therapist. SpO2 94%. LR bolus 250 ml IV for CVP 6 and decreased urine
output. Cardene gtt off. Nitro gtt at 30 mcq/min (4.5 ml/hr). C.O. 4.38 C.I. 2.00 SVR 949 PAP / (17) CVP 6. Assessment/Interventions as documented.
[2025-05-28 02:22] LABS: Glucose - Point of Care 124 mg/dl (70-99)
[2025-05-28] MEDS: ANCEF 5 IV ×2 (02:23→10:23)
[2025-05-28] MEDS: CARDENE 200 IV (02:50)
[2025-05-28] MEDS: TORADOL 15 MG IV (02:50)
[2025-05-28 03:04] LABS: Glucose - Point of Care 128 mg/dl (70-99)
--- NOTE | 2025-05-28 03:15 | PTCARENOTE ---
Midflow Oxygen 15L - SpO2 95%. No c/o SOB. Nitro gtt at 60 mcq/min (9 ml/hr). Cardene gtt restarted to maintain SBP <110. Toradol 15 mg IV x1 for pain management. C.O. 4.77 C.I. 2.18 SVR 872 PAP (20) CVP 10. Assessment/Interventions
as documented.
[2025-05-28 04:09] LABS: Glucose - Point of Care 117 mg/dl (70-99)
[2025-05-28 04:11] LABS: B.E. -5.1 mmol/L; HCO3 19.9 mmol/L (21-28); O2 Saturation % 98.2 % (94-98); PCO2 36 mmHg (35-48); PO2 81 mmHg (83-108); Potassium 5.3 mMOL/L (3.5-5.1)
[2025-05-28 04:15] LABS: Hematocrit 33.4 % (39.0-52.0); Hemoglobin 11.4 g/dL (13.0-18.0); Mean Corp Hgb Conc. 34.1 g/dL (33.0-37.0); Mean Corpuscular Volume 87.9 fL (80.0-94.0); Platelet Count 147 10^3/uL (130-400); Red Cell Dist. Width 14.3 % (11.5-14.5)
[2025-05-28] MEDS: NOVOLIN R INSULIN INFUSION 100 IV (04:30)
[2025-05-28 04:42] LABS: Blood Urea Nitrogen 30 mg/dl (9-20); Calcium 8.5 mg/dl (8.4-10.2); Carbon Dioxide 21 mmol/L (22-30); Chloride 115 mmol/L (98-107); Estimated Creatinine Clearance 45 ml/min; Glucose 120 mg/dl (70-99); Magnesium 2.7 mg/dl (1.6-2.3); Potassium 5.4 mmol/L (3.5-5.1); Sodium 141 mmol/L (135-145); eGFR 41.78
[2025-05-28 05:17] LABS: Glucose - Point of Care 109 mg/dl (70-99)
[2025-05-28] MEDS: TYLENOL PO (05:40)
[2025-05-28 06:08] LABS: Glucose - Point of Care 121 mg/dl (70-99)
[2025-05-28] MEDS: CALCIUM GLUCONATE 1000 MG IV (07:30)
[2025-05-28] MEDS: DEXTROSE 50% SYRINGE 25 GRAMS IV (07:30)
[2025-05-28] MEDS: NOVOLIN R 10 UNITS IV (07:31)
[2025-05-28] MEDS: SODIUM BICARBONATE 50 MEQ IV (07:32)
[2025-05-28] MEDS: LIDOCAINE 4% PATCH 1 PATCH TOPICAL (07:45)
[2025-05-28] MEDS: NEURONTIN 100 MG PO ×3 (07:46→21:36)
[2025-05-28] MEDS: LOPRESSOR 12.5 MG PO (07:47)
[2025-05-28] MEDS: ALBUMIN 5% 250 IV (07:48)
[2025-05-28 07:52] LABS: Glucose - Point of Care 142 mg/dl (70-99)
--- NOTE | 2025-05-28 08:23 | PTCARENOTE ---
Assumed care of patient from maintenance technician 3rd shift RN. AAO x 3 SR 1degree AVB and BBB on monitor. Epicardial wire set to back up of AAI 60. RT IJ cordis with swan @ 47 cm. Lt radial A line transducing. Lines leveled, recalibrated and flushed. Drips
infusing on handoff as follows: Cardene, nitroglycerin, insulin. 15 L midflow pulse ox 95%. Poor cough effort. Chest tube x 1 to - 20 cm suction. No air leak or crepitus noted. . Abdomen soft and non tender, denies nausea at present, passing
flatus. Elliott draining clear yellow urine. Surgical sites c,d,i. Plus 1-2 general anasarca. Pulses palpable
[2025-05-28] MEDS: PROTONIX 40 MG PO (08:49)
[2025-05-28] MEDS: PACERONE 200 MG PO (08:49)
[2025-05-28] MEDS: LOW STRENGTH ASPIRIN 81 MG PO (08:49)
[2025-05-28] MEDS: BACTROBAN 2% OINTMENT 1 APPLIC NASAL ×2 (08:49→19:46)
[2025-05-28 08:53] LABS: Glucose - Point of Care 104 mg/dl (70-99)
[2025-05-28] MEDS: SENOKOT PO (09:10)
[2025-05-28] MEDS: VITAMIN B-12 PO (09:10)
[2025-05-28] MEDS: VITAMIN D3 (cholecalciferol) PO (09:10)
[2025-05-28] MEDS: VITAMIN C PO (09:10)
[2025-05-28] MEDS: MAGNESIUM OXIDE PO (09:10)
--- NOTE | 2025-05-28 09:23 | W.PN.CT ---
Today's Communication / Plan
-
-pod #1
-mvO2 63.9. Drips: Nitro 60, Cardene 2.5, Insulin
-CT output: med 110/235 in 12/24 hrs
-SBP <[address] Vizcarra - liberate sbp 90-130 today
-av-paced most of the night @ 66 bpm for bradycardia, regained nsr 60s-70s in am with new LBBB (pw @ AAI 60 bpm backup)
-will hold BB and Amio d/t postop bradycardia
-monitor rhythm closely (hx on RBBB on ECG 04/11/25)
-hypoxemia on 6L NC, improved with 15 L midflow NC
-ADITHYA - Cr trended up from 1.1 preop to 1.7 on 05/28- got 750 LR and 250 Albumin postop
-metabolic acidosis with hyperkalemia/hypocalcemia overnight- tx with bicarb and Calcium overnight. Got more bicarb and insulin with D50 this am. Started Lokelma x3 doses. Repeat BMP at 11 am.
-follow K/BMP/ABGs
-maintain Elliott for critical I/O
-encourage IS, OOB
Assessment / Plan
-
- Aortic valve stenosis with bicuspid morphology, Type 0- s/p Upper hemisternotomy, to 3rd ICS with Surgical aortic valve replacement [29 mm bioprosthesis] by Dr. Vizcarra on 05/27/25, pod #1
- Intraop FIONA: LVEF 60% pre and post with regional wma. FIONA evaluation of the bioprosthetic valve revealed no paravalvular leak and no intra valvular AI and the mean gradient across the valve was 3 to 4 mmHg.
- Symptomatic severe aortic valve stenosis
- Bicuspid aortic valve morphology, type 0, there was a diffuse/raphae which makes it possibly a type I
- Hypertension
- Hyperlipidemia
- History of Crohn's disease
- Pre-existing 1st degree AVB
- Hx of RBBB on ECG 04/11/25
- Former smoker 30+ yrs
- Acute postop LBBB/ bradycardia, required AV-pacing postop
- ADITHYA
- Acute postop hyperkalemia - tx with bicarb, Ca, insulin/D50, Lokelma
- Acute postop metabolic acidosis
- Acute postop pulmonary insufficiency with hypoxemia- improved with midflow NC
- Acute postop hypovolemia with subsequent hypervolemia
Discussed patient care with: Nursing and Care Team
Subjective
-
Date of Service: May 28, 2025
Objective Data
-
Lab Results
05/28/25 03:58
PT 18.1 Sec (11.4-14.6) H 05/27/25 11:32
INR 1.47 05/27/25 11:32
APTT 36.0 Sec (23.4-35.0) H 05/27/25 11:32
Vital Signs
Vital Signs
Temp Pulse Resp BP Pulse Ox
98.2 F 72 13 90/47 98
05/28/25 08:53 05/28/25 09:10 05/28/25 09:10 05/28/25 08:00 05/28/25 09:14
CT Intake/Output/Weight
05/27/25 05/28/25 05/28/25
18:59 06:59 18:59
Intake Total 1217.9 / 2539.4 1321.5 / 2539.4 428.5 / 428.5
Output Total 500 / 1155 655 / 1155 75 / 75
Balance 717.9 / 1384.4 666.5 / 1384.4 353.5 / 353.5
SaO2: 98
Physical Exam
-
General: Awake and AOx3
Cardiovascular: Regular rate & rhythm, No Murmurs and Rub
Respiratory: Decreased Breath Sounds
Sternum: Stable
Incision: Clean, Dry and Intact
Extremities: No Edema (2+ DPs)
Abodomen: soft, nondistended, nontender, very decreased bowel sounds
Data Reviewed
-
Lab Results: Results Reviewed
Medications: Active Meds Reviewed
Chest X-Ray: Report Reviewed and Image Reviewed
ECG: Report Reviewed and Image Reviewed
[2025-05-28 09:38] LABS: Glucose - Point of Care 110 mg/dl (70-99)
--- NOTE | 2025-05-28 09:46 | PTCARENOTE ---
Assist x 2 oob to chair. Pt denies dizziness and no hypotension noted with transfer. No dumping noted from chest tubes. Sitting up w/o complaing.
--- NOTE | 2025-05-28 10:39 | W.PN.INTV ---
Today's Communication / Plan
Recommendations
Continue postoperative care
Follow renal function
Follow potassium levels-post Lokelma
Incentive spirometry
Advance diet
Follow chest tube output
Daily chest x-ray
No additional critical care recommendations
Sign off
Assessment
-
Status post surgical aortic valve replacement 05/27/2025-Dr. Vizcarra
Postoperative mechanical ventilation
Conditions present prior admission:
Bicuspid aortic valve morphology
Severe aortic stenosis
Hyperlipidemia
Hypertension
History of Crohn's disease.
Assessment and plan:
Postoperative day 1
Extubated-on low rate supplemental oxygen.
Incentive spirometry encouraged
Continue analgesia
Increase activity as able
-
Anemia noted-no evidence of acute bleeding
Follow H&H serially
Hemodynamics -acceptable off vasoactive drugs
On Cardene and nitroglycerin drip
Leukocytosis noted. Likely reactive.
Afebrile
Creatinine elevation noted creatinine up to 1.7/hyperkalemia
Continue hemodynamic support
Treated medically for now
Follow potassium level closely
Continue to monitor urinary output
Chest tube with no excessive drainage-no air leak.
Chest x-ray reviewed: With no pneumothorax or fluid collections.
Advance diet
Head of the bed elevation
History of chron's disease on [facility]
Glycemic control per protocol
DVT prophylaxis when safe from the surgical perspective.
No additional critical care recommendation
Sign off
Subjective Dataa
Subjective Data
Date of Service:
Date of Service: May 28, 2025
Chief Complaint: [employer] Follow Up (Status post aortic valve replacement)
Subjective:
Patient offers no complaints this morning
Review of Systems
Cardiopulmonary: Dyspnea (none at rest), Cough (n) and Sputum Production (n)
GI: Abdominal Pain (n)
Objective Data
Data Reviewed
Vital Signs / I&O / Oxygen:
Vital Signs
Temp Pulse Resp BP Pulse Ox
98.2 F 68 27 90/47 97
05/28/25 08:53 05/28/25 10:15 05/28/25 10:15 05/28/25 08:00 05/28/25 10:15
Intake and Output
05/27/25 05/28/25 05/29/25
06:59 06:59 06:59
Intake Total 2539.4 / 2539.4 694.8 / 694.8
Output Total 1155 / 1155 115 / 115
Balance 1384.4 / 1384.4 579.8 / 579.8
SaO2 [CPAP/PSV] 96
SaO2 [SIMV] 95
SaO2 97
Nasal Cannula flow liters per 6
minute
Physical Exam
General: Comfortable
HEENT: Normocephalic
Cardiovascular: S1-S2
Respiratory: Clear and Chest Tube (No excessive drainage. No air leak)
GI: Soft and Non Distended
Neurology: Awake
Skin: Warm
Labs/Micro/Reports
Lab Data
05/28/25 03:58
Laboratory Results
05/27/25 05/27/25 05/27/25
11:32 11:34 16:06
PT 18.1 H
INR 1.47
APTT 36.0 H
pH 7.31 L 7.40
pCO2 42 29 L
pO2 150 H 90
HCO3 21.1 18.0 L
O2 Delivery Level
05/27/25 05/28/25 05/28/25
21:01 00:21 03:58
PT
INR
APTT
pH 7.34 L 7.37 7.35
pCO2 36 35 36
pO2 96 62 L 81 L
HCO3 19.4 L 20.2 L 19.9 L
O2 Delivery Level
[2025-05-28] MEDS: NSS IV (11:31)
[2025-05-28 11:35] LABS: Blood Urea Nitrogen 34 mg/dl (9-20); Calcium 8.4 mg/dl (8.4-10.2); Carbon Dioxide 21 mmol/L (22-30); Chloride 110 mmol/L (98-107); Estimated Creatinine Clearance 43 ml/min; Glucose 102 mg/dl (70-99); Potassium 5.0 mmol/L (3.5-5.1); Sodium 138 mmol/L (135-145); eGFR 39.01
[2025-05-28 11:44] LABS: Glucose - Point of Care 93 mg/dl (70-99)
--- NOTE | 2025-05-28 13:26 | PTCARENOTE ---
Buddy Weldon [facility] @ [id number]
--- NOTE | 2025-05-28 13:41 | W.PN.ANS.POP ---
Anesthesia Post Operative
- Anesthesia Post Op Note
Vital Signs Stable-See Nursing Note: Yes
Airway Patent: Yes
Adequate Pain Control: Yes
Change in Mental Status: No
Current Postoperative Nausea & Vomiting: No
Anesthesia Complications: No
General Anesthetic Recall: No
Unplanned Admission: No
Post Op Hydration Adequate: Yes
[2025-05-28] MEDS: FLEXERIL 5 MG PO (14:26)
[2025-05-28] MEDS: LOKELMA 10 GRAM PO ×2 (14:27→18:09)
[2025-05-28] MEDS: TYLENOL 975 MG PO ×2 (14:28→21:35)
[2025-05-28] MEDS: FERRLECIT 110 MG IV (14:28)
[2025-05-28 17:29] LABS: Blood Urea Nitrogen 39 mg/dl (9-20); Calcium 8.4 mg/dl (8.4-10.2); Carbon Dioxide 22 mmol/L (22-30); Chloride 106 mmol/L (98-107); Estimated Creatinine Clearance 41 ml/min; Glucose 131 mg/dl (70-99); Potassium 5.0 mmol/L (3.5-5.1); Sodium 137 mmol/L (135-145); eGFR 36.56
[2025-05-28] MEDS: LIPITOR 40 MG PO (18:10)
[2025-05-28 19:01] LABS: Hepatitis C Antibody Negative (Negative)
[2025-05-28] MEDS: MAGNESIUM OXIDE 400 MG PO (19:45)
[2025-05-28] MEDS: SENOKOT 8.6 MG PO (19:46)
[2025-05-28] MEDS: REMOVE LIDOCAINE PATCH 1 PATCH REMOVE (19:46)
[2025-05-29] VITALS (12 sets, daily range): BP systolic 131–161; BP diastolic 45–73; BMI 35.6
[2025-05-29 03:35] LABS: Hematocrit 31.3 % (39.0-52.0); Hemoglobin 10.4 g/dL (13.0-18.0); Mean Corp Hgb Conc. 33.2 g/dL (33.0-37.0); Mean Corpuscular Volume 90.2 fL (80.0-94.0); Platelet Count 119 10^3/uL (130-400); Red Cell Dist. Width 14.8 % (11.5-14.5)
[2025-05-29 04:00] LABS: Blood Urea Nitrogen 39 mg/dl (9-20); Calcium 8.3 mg/dl (8.4-10.2); Carbon Dioxide 26 mmol/L (22-30); Chloride 106 mmol/L (98-107); Estimated Creatinine Clearance 52 ml/min; Glucose 121 mg/dl (70-99); Magnesium 2.6 mg/dl (1.6-2.3); Potassium 4.9 mmol/L (3.5-5.1); Sodium 136 mmol/L (135-145); eGFR 48.55
[2025-05-29] MEDS: TYLENOL 975 MG PO ×3 (05:25→21:49)
[2025-05-29] MEDS: LOKELMA 10 GRAM PO (06:13)
--- NOTE | 2025-05-29 07:31 | W.PN.CT ---
Today's Communication / Plan
-
-pod #2
-no issues overnight
-CT output 45/120 in 12/24 hrs
-Cr is improving -1.5 today (peak Cr 1.9 on 05/28 and 1.1 preop)
-new LBBB/bradycardia postop- holding BB and Amio
-pOx 94% on 2L- wean O2 as tolerated
-follow rhythm
encourage IS, OOB
Assessment / Plan
-
- Aortic valve stenosis with bicuspid morphology, Type 0- s/p Upper hemisternotomy, to 3rd ICS with Surgical aortic valve replacement [29 mm bioprosthesis] by Dr. Vizcarra on 05/27/25, pod #2
- Intraop FIONA: LVEF 60% pre and post with regional wma. FIONA evaluation of the bioprosthetic valve revealed no paravalvular leak and no intra valvular AI and the mean gradient across the valve was 3 to 4 mmHg.
- Symptomatic severe aortic valve stenosis
- Bicuspid aortic valve morphology, type 0, there was a diffuse/raphae which makes it possibly a type I
- Hypertension
- Hyperlipidemia
- History of Crohn's disease
- Pre-existing 1st degree AVB
- Hx of RBBB on ECG 04/11/25
- Former smoker 30+ yrs
- Acute postop LBBB/ bradycardia, required AV-pacing postop
- ADITHYA
- Acute postop hyperkalemia - tx with bicarb, Ca, insulin/D50, Lokelma
- Acute postop metabolic acidosis
- Acute postop pulmonary insufficiency with hypoxemia- improved with midflow NC
- Acute postop hypovolemia with subsequent hypervolemia
Discussed patient care with: Nursing and Care Team
Subjective
-
Date of Service: May 29, 2025
Objective Data
-
Lab Results
05/29/25 03:17
05/29/25 03:17
PT 18.1 Sec (11.4-14.6) H 05/27/25 11:32
INR 1.47 05/27/25 11:32
APTT 36.0 Sec (23.4-35.0) H 05/27/25 11:32
Vital Signs
Vital Signs
Temp Pulse Resp BP Pulse Ox
98.9 F 68 20 157/67 96
05/29/25 07:25 05/29/25 07:25 05/29/25 07:25 05/29/25 05:35 05/29/25 07:25
CT Intake/Output/Weight
05/28/25 05/29/25 05/29/25
18:59 06:59 18:59
Intake Total 1377.3 / 1757.3 340 / 1757.3 40 / 40
Output Total 325 / 1140 745 / 1140 70 / 70
Balance 1052.3 / 617.3 -405 / 617.3 -30 / -30
SaO2: 96
Physical Exam
-
General: Awake and AOx3
Cardiovascular: Regular rate & rhythm and No Murmurs
Respiratory: Decreased Breath Sounds
Sternum: Stable
Incision: Clean, Dry and Intact
Extremities: Other (trace edema b/l)
Abdomen: soft, nontender, nondistended, + flatus, no nausea
Data Reviewed
-
Lab Results: Results Reviewed
Medications: Active Meds Reviewed
Chest X-Ray: Report Reviewed and Image Reviewed
ECG: Report Reviewed and Image Reviewed
--- NOTE | 2025-05-29 09:00 | PTCARENOTE ---
Received patient for 7a-7p shift. Patient AAOx3 without complaints. VSS, SR with BBB on threat monitoring analyst. Medications administered as ordered. Patient denies pain at this time. RIJ cordis infusing without complications. Will continue to monitor.
[2025-05-29] MEDS: BACTROBAN 2% OINTMENT 1 APPLIC NASAL ×2 (09:25→20:17)
[2025-05-29] MEDS: NEURONTIN 100 MG PO ×3 (09:25→21:49)
[2025-05-29] MEDS: SENOKOT 8.6 MG PO ×2 (09:25→19:56)
[2025-05-29] MEDS: PROTONIX 40 MG PO (09:26)
[2025-05-29] MEDS: VITAMIN C 500 MG PO (09:26)
[2025-05-29] MEDS: NORVASC 10 MG PO (09:26)
[2025-05-29] MEDS: MAGNESIUM OXIDE 400 MG PO ×2 (09:27→19:56)
[2025-05-29] MEDS: VITAMIN B-12 1000 MCG PO (09:27)
[2025-05-29] MEDS: VITAMIN D3 (cholecalciferol) 125 MCG PO (09:27)
[2025-05-29] MEDS: LIDOCAINE 4% PATCH TOPICAL (09:28)
[2025-05-29] MEDS: LOW STRENGTH ASPIRIN 81 MG PO (09:28)
--- NOTE | 2025-05-29 13:12 | W.PN.CD ---
Today's Communication / Plan
-
npo p mn
ep eval in am
Impression / Plan
-
Severe - s/p AVR 05/27/25.
-post op LBBB
-otherwise doing well
Arrhythmia
Baseline RBBB -intermittent, no seen 05/16/25
Now with LBBB
?consideration of alternating bundles even if the RBBB is intermittent? ?PPM
-will ask for EP comment
-NPO p midnight in case pacer indicated
-post op wires in place, very rare pacing seen
ADITHYA:
-post op, improved
HTN - stable, off drips.
HLD - on Lipitor, continue.
Crohn's disease - stable on Skyrizi.
Physical Exam
Vital Signs/Labs
Vital Signs
Temp Pulse Resp BP Pulse Ox
99.3 F 71 20 158/70 92
05/29/25 07:48 05/29/25 11:00 05/29/25 08:00 05/29/25 10:00 05/29/25 12:02
05/28/25 05/29/25 05/30/25
06:59 06:59 06:59
Actual Weight 235 lb 14.314 oz 241 lb 2.971 oz
05/29/25 03:17
05/29/25 03:17
PT 18.1 Sec (11.4-14.6) H 05/27/25 11:32
INR 1.47 05/27/25 11:32
APTT 36.0 Sec (23.4-35.0) H 05/27/25 11:32
Magnesium 2.6 mg/dl (1.6-2.3) H 05/29/25 03:17
Physical Exam
Constitutional: No acute distress
Cardiovascular: Rhythm & rate is regular, Pedal edema is absent, JVD pressure is normal, Systolic murmur absent and Diastolic murmur absent
Respiratory: Respiratory effort normal, Lungs clear to auscul., Wheeze Absent, Crackles Absent and Rhonchi Absent
Neuro/Psych: AO x 3
Data Reviewed
-
Date of Service: May 29, 2025
Medical Decision Making: Review of Case with other Provider (Dr Santiago and Angelina MANUEL PA,ep eval for possible pacer in am)
EKG: Other (lbbb one or two paced beats, nothing consisitent)
[2025-05-29] MEDS: FERRLECIT 110 MG IV (14:25)
[2025-05-29] MEDS: NSS 500 IV (14:26)
--- NOTE | 2025-05-29 14:52 | PTCARENOTE ---
VSS, 100% Vpaced on channel cementer. Elliott d/c'd as ordered. Patient ambulated in rebollar x 2, on 2 L o2 via nasal cannula. HR dropped to 40s, asymptomatic, EKG performed. Temp pacer settings changed to DDD 30//10. Chest tube d/c'd. Medications
administered as ordered. Patient denies pain at this time. + BM, pt voided at 1330 without issues. Will continue to monitor.
[2025-05-29] MEDS: LIPITOR 40 MG PO (17:09)
--- NOTE | 2025-05-29 19:51 | PTCARENOTE ---
Assumed care of patient from prior RN at 1900. Patient OOB to chair ambulated in room and got patient back to bed. VPaced DDI on monitor, pulses present, trace edema in upper extremities. Lungs sounds diminished at bases, [id number]. Vital signs
stable, on 1 L NC, Cordis and 1PIV, CT dressing site DCI, AV Wire to pacer box, . NPO schedule for midnight for OR in morning permanent pacer placement. Voiding without issue clear yellow urine. Denies pain at this time. see workflow for
detailed assessment data.
[2025-05-29] MEDS: REMOVE LIDOCAINE PATCH 1 PATCH REMOVE (20:17)
[2025-05-30] VITALS (24 sets, daily range): BP systolic 109–174; BP diastolic 41–101; PULSE 72; O2SAT 97–98; BMI 35.3
[2025-05-30 04:10] LABS: Hematocrit 30.6 % (39.0-52.0); Hemoglobin 9.9 g/dL (13.0-18.0); Mean Corp Hgb Conc. 32.4 g/dL (33.0-37.0); Mean Corpuscular Volume 92.7 fL (80.0-94.0); Platelet Count 129 10^3/uL (130-400); Red Cell Dist. Width 14.3 % (11.5-14.5)
[2025-05-30 04:32] LABS: Blood Urea Nitrogen 30 mg/dl (9-20); Calcium 8.1 mg/dl (8.4-10.2); Carbon Dioxide 28 mmol/L (22-30); Chloride 106 mmol/L (98-107); Estimated Creatinine Clearance 72 ml/min; Glucose 107 mg/dl (70-99); Magnesium 2.4 mg/dl (1.6-2.3); Potassium 4.0 mmol/L (3.5-5.1); Sodium 137 mmol/L (135-145); eGFR > 60.00
[2025-05-30] MEDS: TYLENOL 975 MG PO ×3 (06:18→23:03)
[2025-05-30] MEDS: BACTROBAN 2% OINTMENT 1 APPLIC NASAL ×2 (06:41→22:09)
--- NOTE | 2025-05-30 07:47 | W.PN.CT ---
Today's Communication / Plan
-
-pod #3
-no issues overnight, feels better overall
-in nsr with v-pacing
-npo this am for possible pacer. EP will evaluate
-Cr is down from peak 1.9 to his baseline of 1.1 today
-pt does Skyrizi injections q 8 wks. His injection is due today. Per Dr. Vizcarra, talked to the pt and his and asked to hold off the injection for 2 weeks
-encourage IS, OOB, ambulate
Assessment / Plan
-
- Aortic valve stenosis with bicuspid morphology, Type 0- s/p Upper hemisternotomy, to 3rd ICS with Surgical aortic valve replacement [29 mm bioprosthesis] by Dr. Vizcarra on 05/27/25, pod #3
- Intraop FIONA: LVEF 60% pre and post with regional wma. FIONA evaluation of the bioprosthetic valve revealed no paravalvular leak and no intra valvular AI and the mean gradient across the valve was 3 to 4 mmHg.
- Symptomatic severe aortic valve stenosis
- Bicuspid aortic valve morphology, type 0, there was a diffuse/raphae which makes it possibly a type I
- Hypertension
- Hyperlipidemia
- History of Crohn's disease
- Pre-existing 1st degree AVB
- Hx of RBBB on ECG 04/11/25
- Former smoker 30+ yrs
- Acute postop LBBB/ bradycardia, required AV-pacing postop
- ADITHYA
- Acute postop hyperkalemia - tx with bicarb, Ca, insulin/D50, Lokelma
- Acute postop metabolic acidosis
- Acute postop pulmonary insufficiency with hypoxemia- improved with midflow NC
- Acute postop hypovolemia with subsequent hypervolemia
Discussed patient care with: Nursing and Care Team
Subjective
-
Date of Service: May 30, 2025
Objective Data
-
Lab Results
05/30/25 03:48
05/30/25 03:48
PT 18.1 Sec (11.4-14.6) H 05/27/25 11:32
INR 1.47 05/27/25 11:32
APTT 36.0 Sec (23.4-35.0) H 05/27/25 11:32
Vital Signs
Vital Signs
Temp Pulse Resp BP Pulse Ox
98.5 F 74 18 154/83 96
05/30/25 07:06 05/30/25 07:00 05/30/25 07:06 05/30/25 06:29 05/30/25 07:06
CT Intake/Output/Weight
05/29/25 05/30/25 05/30/25
18:59 06:59 18:59
Intake Total 300 / 470 170 / 470 45 / 45
Output Total 355 / 1355 1000 / 1355 1000 / 1000
Balance -55 / -885 -830 / -885 -955 / -955
SaO2: 96
Physical Exam
-
General: Awake and AOx3
Cardiovascular: Regular rate & rhythm, No Murmurs and No Rub
Respiratory: Decreased Breath Sounds
Sternum: Stable
Incision: Clean, Dry and Intact
Extremities: No Edema
Abdomen: soft, nontender, nondistended, + bowel sounds, no nausea, + flatus
Data Reviewed
-
Lab Results: Results Reviewed
Medications: Active Meds Reviewed
Chest X-Ray: Report Reviewed and Image Reviewed
ECG: Report Reviewed and Image Reviewed
[2025-05-30] MEDS: LIDOCAINE 4% PATCH TOPICAL (07:57)
[2025-05-30] MEDS: PROTONIX 40 MG PO (08:45)
[2025-05-30] MEDS: LOW STRENGTH ASPIRIN 81 MG PO (08:45)
[2025-05-30] MEDS: LASIX 40 MG IV ×2 (08:45→14:40)
[2025-05-30] MEDS: NORVASC 10 MG PO (08:45)
[2025-05-30] MEDS: VITAMIN B-12 PO (09:37)
[2025-05-30] MEDS: MAGNESIUM OXIDE PO (09:37)
[2025-05-30] MEDS: VITAMIN C PO (09:37)
[2025-05-30] MEDS: NEURONTIN PO (09:37)
[2025-05-30] MEDS: SENOKOT PO (09:37)
[2025-05-30] MEDS: VITAMIN D3 (cholecalciferol) PO (09:38)
--- NOTE | 2025-05-30 10:10 | PTCARENOTE ---
Patient received from neurological surgeon resting oob in chair, family at bedside, AAO x 3. V-paced via cm, SaO2 @ 95% on RA. RIJ Cordis w/kvo infusing. Epicardial A+V wires present. All procedural sites stable. Patient NPO for ppm placement this morning.
Patient and spouse updated to plan of care for the day, in agreement. Patient to CCL @ 1000 for procedure via bed.
--- NOTE | 2025-05-30 11:25 | CM ---
Chart reviewed. Patient is going for a PPM. Patient is independent of ADLS, lives with his in a 2 [address], 1 DENIS, 0 DME. Plan is for the patient to return home with CT Transitional RN. CM to follow
--- NOTE | 2025-05-30 12:32 | ITS.CL.PACE ---
Lead Front Desk Agent - Pacemaker Implant
Pacemaker Implant
Procedure Report:
Date of Procedure: May 30, 2025.
Procedure: Pacemaker Implantation. Left upper extremity venogram.
Indication: The pacemaker is for the treatment of nonreversible symptomatic bradycardia due to second and third degree atrioventricular block following surgical arotic valve replacement on May 27, 2025.
Performing physician: Chano Jewell MD, [facility].
Implants:
Pulse Generator: Medtronic; Model# W1DR01; Serial# [id number].
RA Lead: Medtronic; Model# 5076-52cm; Serial# [id number].
RV Lead: Medtronic; Model# 3830-69cm; Serial# [id number].
Technique: A time out was performed. A 10 mL upper extremity venogram demonstrated patent left axillary, cephalic, and subclavian veins. The procedure site was identified. The patient was anesthetized by the anesthesia service. Preoperative
cefazolin was administered. The patient was prepped and draped in the usual fashion. Local anesthetic was applied to the left prepectoral subcutaneous tissue. A 3 inch incision was made along the left deltopectoral groove. Dissection was carried to
the fascia. The left cephalic vein was easily isolated and proximal and distal control with 2-0 Vicryl suture. Using a micropuncture needle to access the cephalic vein under direct visualization a wire was advanced into the central circulation. A 7
Fr introducer was placed to allow two 0.35 J wires to be advanced. The leads were introduced with hemostatic peel away introducer sheaths. The RV lead was placed using utilizing the BuildFax His delivery catheter ([id number]) that was advanced to the
left bundle area as confirmed by fluoroscopy in the YEMENI and GOMEZ projections. The lead tip was advanced. PVC morphology was reviewed. When a satisfactory location was identified (W pattern observed) the lead was screwed into position with serial
turns. Septal engagement was confirmed with gentle torque applied to the guide sheath. After each series of turns (2-3) unipolar sensed morphology and impedance, and paced morphology of V1 was analyzed. The lead was further advanced until
satisfactory morphology and electrical characteristics were confirmed. The RV lead was placed in the second location evaluated. The long guiding sheath was cut and removed from the RV without change in lead position, impedance, sensing, or capture.
The ventricular lead was secured to the pectoralis muscle and fascia with two 0-silk sutures. The atrial lead was placed in the right atrial appendage. 8 volt pacing from each lead did not capture the diaphragm. The atrial leads was secured to the
pectoralis muscle and fascia. A subcutaneous pocket was created with Bovie cautery. Hemostasis was excellent. The leads were appropriately attached to the device. The pocket was irrigated with antibiotic solution. The device and leads were placed in
the pocket. A BuildFax, TYRX Absorbable Antibacterial Envelope was placed in the pocket, (Ref [id number]; Lot [id number]). The incision was closed in three layers with absorbable suture. Steri-strips and a silver impregnated dressing were placed.
Estimated blood loss was less than 15 ml all from cephalic vein back oozing. There were no complications. Fluoroscopy time 4.3 minutes and DAP 5.37 GyCM2. The device was then interrogated after skin closure.
Lead Analysis:
RA lead: P: 1.4 mV; Threshold: 1 V @ 0.4 ms; Impedance: 874 ohms.
RV lead: R: 20 mV; Threshold: 0.5 V @ 0.4 ms; Impedance: 874 ohms. Unipolar RV impedance 570 ohms.
Paced QRS characteristics: V1 has Qr morphology and measures 130 ms in duration, LVAT (stim to peak V5/V6) is 70 ms, and R peak V1 to R peak V6 is 54 ms. Unipolar and bipolar pacing have similar characteristics at low and high output.
Final Programming: DDDR 60-130 bpm.
Conclusion: Uncomplicated Medtronic pacemaker implant. The pacing system is MRI conditional.
Recommendation: Routine post pacemaker care.
cc: Fartun Horton DO, Harshal Jules MD, and Raymond Vizcarra MD.
--- NOTE | 2025-05-30 13:00 | PTCARENOTE ---
Patient received back from CCL s/p ppm placement. V-paced via cm, SaO2 @ 89% on RA, placed to 2lnc w/SaO2 94%. LCW site cdi, sling in place. EKG performed, pcxr obtained. to bedside.
[2025-05-30] MEDS: FERRLECIT 110 MG IV (13:53)
[2025-05-30] MEDS: KCL 40 MEQ PO (14:40)
[2025-05-30] MEDS: NSS IV (15:23)
[2025-05-30] MEDS: NEURONTIN 100 MG PO ×2 (16:40→22:08)
[2025-05-30] MEDS: LIPITOR 40 MG PO (17:12)
[2025-05-30] MEDS: ANCEF 5 IV (17:13)
--- NOTE | 2025-05-30 17:39 | PTCARENOTE ---
Pt received at 1550 from CV[facility]. Pt ambulated to the new room, gait steady. Pt denies any pain or discomfort. Room air sat 95%. Sitting oob in the recliner chair since arrival. No change in status from am assessment. No c/o offered.
[2025-05-30] MEDS: TYLENOL 650 MG PO (19:50)
[2025-05-30] MEDS: MAGNESIUM OXIDE 400 MG PO (19:50)
[2025-05-30] MEDS: SENOKOT 8.6 MG PO (19:50)
[2025-05-30] MEDS: REMOVE LIDOCAINE PATCH REMOVE (19:52)
--- NOTE | 2025-05-30 20:54 | PTCARENOTE ---
Rec'd pt at change of shift. Pt AAO*3, VSS, and Vpaced on tele monitor. Pt given PRN Tylenol as ordered. Pt verbalized understanding of activity restrictions related to L arm and new PPM device in L chest wall. Discharge planning discussed with
pt. PT also instructed to use urinal for measuring output and educated on importance of I+O's. Pt denies having any questions or concerns. Pt now resting with call antonio in reach. See MAR and flowchart for full pt care and assessment.
[2025-05-31] VITALS (9 sets, daily range): BP systolic 117–179; BP diastolic 56–76; PULSE 87; O2SAT 96; BMI 34.7
[2025-05-31] MEDS: ANCEF 5 IV (04:16)
[2025-05-31 05:43] LABS: Hematocrit 30.9 % (39.0-52.0); Hemoglobin 10.5 g/dL (13.0-18.0); Mean Corp Hgb Conc. 34.0 g/dL (33.0-37.0); Mean Corpuscular Volume 91.4 fL (80.0-94.0); Platelet Count 159 10^3/uL (130-400); Red Cell Dist. Width 13.9 % (11.5-14.5)
[2025-05-31 05:50] LABS: Blood Urea Nitrogen 23 mg/dl (9-20); Calcium 8.0 mg/dl (8.4-10.2); Carbon Dioxide 27 mmol/L (22-30); Chloride 105 mmol/L (98-107); Estimated Creatinine Clearance 78 ml/min; Glucose 105 mg/dl (70-99); Magnesium 2.3 mg/dl (1.6-2.3); Potassium 4.4 mmol/L (3.5-5.1); Sodium 137 mmol/L (135-145); eGFR > 60.00
--- NOTE | 2025-05-31 05:59 | PTCARENOTE ---
PT used call antonio to report R groin dressing no longer intact. Upon inspection dressing was removed and suture similar to figure 8 suture present with small piece of plastic present. R groin site with some ecchymosis and non tender. Ct [facility]
notified before redressing site via tiger text. PA came to inspect site and ensured site was being kept intact with a retention suture. Pt updated and aware that suture should be removed prior to discharge. Pt now resting with call antonio in reach.
[2025-05-31] MEDS: VITAMIN D3 (cholecalciferol) 125 MCG PO (08:02)
[2025-05-31] MEDS: VITAMIN C 500 MG PO (08:03)
[2025-05-31] MEDS: NORVASC 10 MG PO (08:03)
[2025-05-31] MEDS: MAGNESIUM OXIDE 400 MG PO (08:03)
[2025-05-31] MEDS: VITAMIN B-12 1000 MCG PO (08:04)
[2025-05-31] MEDS: NEURONTIN 100 MG PO (08:04)
[2025-05-31] MEDS: PROTONIX 40 MG PO (08:04)
[2025-05-31] MEDS: LOW STRENGTH ASPIRIN 81 MG PO (08:05)
[2025-05-31] MEDS: SENOKOT 8.6 MG PO (08:05)
[2025-05-31] MEDS: BACTROBAN 2% OINTMENT 1 APPLIC NASAL (08:05)
--- NOTE | 2025-05-31 08:44 | W.PN.CT ---
Today's Communication / Plan
-
Plan:
-No major issues overnight. Hemodynamically and neurologically intact
-Underwent PPM placement for postop HB, currently v-paced @ 80's
-PPM pocket is C/D/I with arm sling applied
-Postop ADITHYA has resolved, cr 1.0, peaked @ 1.9; preop 1.0 -1.2
-F/U 2-view
-Encourage use of IS
-OOB into chair/Ambulate
-Holding Skyrizi x 2 wks
-Will need right groin retention suture removed before d/c home
-Likely d/c home tomorrow
-
Assessment / Plan
-
- Aortic valve stenosis with bicuspid morphology, Type 0- s/p Upper hemisternotomy, to 3rd ICS with Surgical aortic valve replacement [29 mm bioprosthesis] by Dr. Vizcarra on 05/27/25, pod #4
- Intraop FIONA: LVEF 60% pre and post with regional wma. FIONA evaluation of the bioprosthetic valve revealed no paravalvular leak and no intra valvular AI and the mean gradient across the valve was 3 to 4 mmHg.
-Postop HB S/P Uncomplicated Medtronic pacemaker implant. The pacing system is MRI conditional, 05/30/25, by Dr. Jewell
- Symptomatic severe aortic valve stenosis
- Bicuspid aortic valve morphology, type 0, there was a diffuse/raphae which makes it possibly a type I
- Hypertension
- Hyperlipidemia
- History of Crohn's disease
- Pre-existing 1st degree AVB
- Hx of RBBB on ECG 04/11/25
- Former smoker 30+ yrs
- Acute postop LBBB/ bradycardia, required AV-pacing postop
- ADITHYA
- Acute postop hyperkalemia - tx with bicarb, Ca, insulin/D50, Lokelma
- Acute postop metabolic acidosis
- Acute postop pulmonary insufficiency with hypoxemia- improved with midflow NC
- Acute postop hypovolemia with subsequent hypervolemia
Discussed patient care with: Cardiology, Nursing, Respiratory Therapy, Pharmacy and Care Team
Subjective
-
Date of Service: May 31, 2025
Pt c/o mild incisional pain, otherwise feels well
Objective Data
-
Lab Results
05/31/25 04:29
05/31/25 04:29
PT 18.1 Sec (11.4-14.6) H 05/27/25 11:32
INR 1.47 05/27/25 11:32
APTT 36.0 Sec (23.4-35.0) H 05/27/25 11:32
Vital Signs
Vital Signs
Temp Pulse Resp BP Pulse Ox
99.4 F 75 18 149/76 94
05/31/25 07:24 05/31/25 07:26 05/31/25 07:24 05/31/25 07:26 05/31/25 07:24
CT Intake/Output/Weight
05/30/25 05/31/25 05/31/25
18:59 06:59 18:59
Intake Total 555 / 555
Output Total 2074 / 5 400 / 2475
Balance -1520 / -1920 -400 / -1920
SaO2: 94 (RA)
Physical Exam
-
General: Awake, Oriented and AOx3
Cardiovascular: Regular rate & rhythm, No Murmurs and No Gallop
Respiratory: Decreased Breath Sounds (at bases, otherwise clear)
Sternum: Stable
Incision: Clean, Dry, Intact and Dressing Intact
Extremities: Other (+trace edema)
Data Reviewed
-
Lab Results: Results Reviewed
Medications: Active Meds Reviewed
Chest X-Ray: Report Reviewed and Image Reviewed
ECG: Report Reviewed and Image Reviewed
[2025-05-31] MEDS: TYLENOL PO (10:18)
[2025-05-31] MEDS: KCL 10 MEQ PO (10:19)
[2025-05-31] MEDS: LASIX 20 MG IV (10:19)
--- NOTE | 2025-05-31 10:19 | W.DCSUMMARY ---
Addendum entered and electronically signed by NERI Mitchell 05/31/25 15:57:
CDI QUERY RESPONSE:
Additional diagnosis: acute post op blood loss anemia (expected)
Original Note:
Discharge Summary
Discharge Data
Date of Admission: 05/27/25
Date of Discharge: 05/31/25
-
Pending Results: No
Hospital Course
Primary care physician: Dr. Fartun Horton
Outpatient artificial leather calender operator: Dr. Harshal Jules
Inpatient consultants: [facility], Gas Plant Operator/Pulmonary
Procedures:
1. Upper hemisternotomy, to 3rd ICS with surgical AVR (#29 mm Inspiris, bioprosthesis) by Dr. Raymond Vizcarra on 05/27/25
2. Placement of Permanent Pacemaker (Medtronic; DDDR 60-130) in [place] by Dr. Chano Jewell on 05/30/25
Primary Diagnosis:
1. Symptomatic, Severe Nonrheumatic, Bicuspid Aortic Stenosis
Secondary Diagnoses:
1. Acute postop LBB/bradycardia with progression to CHB requiring AV-pacing post-operatively
2. Acute Kidney Injury
3. Acute postop hyperkalemia, resolved
4. Acute postop metabolic acidosis
5. Acute postop pulmonary insufficieny with hypoxemia - improved with midflow NC
6. Acute postop hypovolemia with subsequent hypervolemia
7. Hypertension
8. Hyperlipidemia
9. Pre-existing 1st degree AVB and RBBB on EKG (04/11/25)
10. Former smoker 30+ years
HPI: Mr. Roque is a 75-year old make with a PMHx of known progressive bicuspid aortic valve stenosis who presented for outpatient consultation. Prior to his consultation he obtained an echocardiogram showing peak/mean gradient of 85/55 mmHg,
respectively, with LISBET calculated to be 0.8 and peak velocity of 4.6 m/s. He underwent a right and left heart cath which revealed nonobstructive CAD with trivial disease in the right system, right heart cath showed moderately elevated biventricular
filling pressures with moderate postcapillary pulmonary hypertension and normal cardiac output. He underwent a Kendrick protocol stress test which showed reduced exercise capacity and inability to complete stage one of the study. He reported
increased fatigue, which progressed over the course of a year. He was determined to be suitable for SAVR. Please see preoperative history and physical for complete details.
Hospital course: Patient was electively admitted on 05/27/2025 for upper hemisternotomy to third intercostal space with surgical AVR by Dr. Raymond Vizcarra. Please see surgeons postoperative report for complete detail of surgery. Intraoperatively,
patient obtained a FIONA which showed LVEF of 60% pre and post operatively with NRWMA, bioprosthetic aortic valve without paravalvular or intervalvular leak, with mean gradient of 3-4 across valve. In progressive fashion, vasopressor support, central
lines, and chest tubes were discontinued. Insulin drip was used for 24 hours postoperatively and was discontinued.
Postoperative course was complicated with new left bundle branch block from preoperative EKG showing right bundle branch block and first-degree AV block. Patient required AV pacing with epicardial pacing wires due to complete heart block.
Beta-blocking agents and amiodarone were held during this time. Patient was evaluated by cardiology and underwent placement of permanent pacemaker on 05/30/[address] Chano Jewell, please see providers note for complete details of procedure.
Following pacemaker placement, epicardial pacing wires were cut and Toprol XL 12.5 daily was restarted for postop operative atrial fibrillation prophylaxis.
Postoperative course was also complicated by ADITHYA with creatinine 0.9 from pre-operative baseline of 1.0-1.2. His home regimen of lisinopril was not restarted due to ADITHYA and Norvasc 10 mg daily was initiated for blood pressure management.
Postoperatively, he had hyperkalemia with serum potassium of 5.6 on 05/27/2025 which improved with medical management. He was diuresed during his postoperative recovery and was sent home with Lasix 20 mg by mouth daily with potassium chloride 10
mEq by mouth daily for 7 days. He will obtain a BMP within 3 days from discharge to assess renal function and electrolytes.
On postoperative day 4, patient was ambulating with minimal assistance, tolerating his diet, and reported pain was well-controlled. He obtained a 2 view chest x-ray which showed small B/L pleural effusions and LLL atelectasis. He was stable for
discharge to home. His weight at discharge was 106 kg with preoperative weight of 103.8 kg. He was instructed to check his weight daily in the morning in addition to parameters to call office. His right groin retention suture was removed without
issue. Instructions to maintain site clean dry and intact and avoid soaking in water for 1 week was provided. His left upper chest pacer site was soft without signs of hematoma. Aquacel dressing was maintained. He will follow-up with cardiology
as an outpatient. He will follow-up in the office with Dr. Vizcarra in 4 weeks from surgery. He will be followed by the transitional care nursing team within 2 to 3 days for discharge.
Home medication changes:
- Lisinopril discontinued - (post-op ADITHYA/Hyperkalemia)
- Norvasc 10 mg/d added
- Gabapentin 100 mg TID x 7 days for postoperative neuropathic pain
- Tylenol 650 mg q6h PRN for mild-moderate pain, HORTA, fever
- Toprol 12.5 mg/d for post-op AF PPx
- Skyrizi - to be held for 2-weeks post op, ok to be resumed on 06/13/25
Discharge Plan
-
Patient Disposition: Home (Routine Discharge)
Discharge Diagnosis/Procedures: Nonrheumatic Bicuspid Aortic Valve Stenosis s/p Mini AVR on 05/27/[address] Vizcarra
Complete Heart Block s/p Permanent Pacemaker implantation on 05/30/[address] Jewell
Condition: Good
Diet: Low Fat, Low Cholesterol, Low Sodium and Restrict fluids to 64 oz
Activity: No strenuous activity
Additional Activity: Stairs at tolerated.
No heavy lifting, pushing, or pulling anything greater than 15 pounds for 1-month.
Driving Restrictions: Not until seen by your Dr
Bathing Restrictions: OK to Shower
Blood Work: Repeat BMP in 3-days to assess renal function and electrolytes s/p ADITHYA and diuretic therapy.
Other Services: Cardiac Rehab
Wound Care: Maintain dressing to left upper chest for 2-3 days, can be removed by Transitional Care Nursing Team.
Specialty Instructions: Weigh Daily- Call MD for wt gain/loss 3 lbs overnight/5 lbs in 1 week
Activity Restrictions/Additional Instructions:
ACTIVITY:
-No strenuous activity: no heavy lifting, pushing, pulling anything over 15 pounds for one month
-Continue to use stairs as tolerated
DRIVING RESTRICTIONS:
-No driving for one month or until approved by your surgeon
WOUND CARE:
-Shower daily. Use soap & water.
-No lotions, creams or powders on incision area.
DIET:
-Continue a low fat/low cholesterol diet.
-Limit fluid intake to 64 oz daily.
-IF you are diabetic, continue carb controlled diet.
CARDIAC REHAB:
-Please make appointment to start in 5-6 weeks with your local hospital program. (See Cardiac Rehabilitation Discharge Booklet).
SPECIALTY INSTRUCTIONS:
-Weigh yourself daily. Call your physician for any weight gain/loss of 3 lbs overnight or 5 lbs in one week.
-REPORT any clicking noise or uneven appearance of your sternum to your surgeon immediately.
-If you smoke, you are instructed to quit. The [place] smoking hotline phone number is [phone]
Stand Alone Forms: DC Inst - Implanted Device
Referrals:
CT Transitional Care Nurse [Outside] - in one to two days
Referral Note: The Cardiothoracic Transitional Care Nurse will call you to set up a visit in 1-2 days.
Will be a pacemaker incision check as well
[facility]. Cardiac Rehab [Outside] - 07/07/25 8:30 am
Referral Note: Cardiac Rehab Orientation appointment and� First Exercise appointment is on Friday07/07/25 at 8:30 am
The Cardiac Rehab gym is located on the first floor of the [facility].
Puja Fox CRNP [Specified Professional Personl, Cardiology] - 07/11/25 10:00 am
Fartun Horton DO [Family Provider, Family Practice] - in four to six weeks
Referral Note: Please make an appointment in four to six weeks.
Raymond Vizcarra MD [Active, Cardiac Surgery] - 06/27/25 2:15 pm
Prescriptions:
New
amlodipine 10 mg Tablet
10 mg PO DAILY Qty: 60 0RF
aspirin 81 mg Tablet,Chewable
81 mg PO DAILY Qty: 0 0RF
furosemide 20 mg Tablet
20 mg PO DAILY 7 Days Qty: 7 0RF
gabapentin 100 mg Capsule
100 mg PO TID 7 Days Qty: 21 0RF
sennosides [Shanice-xavier] 8.6 mg Tablet
8.6 mg PO [id number] PRN (Reason: Constipation) Qty: 0 0RF
acetaminophen 325 mg Tablet
650 mg PO Q6HPRN PRN (Reason: mild-moderate pain,headache,temp >101F) Qty: 0 0RF
potassium chloride 10 mEq Tablet,Er Particles/Crystals
10 meq PO DAILY 7 Days Qty: 7 0RF
Continued
cyanocobalamin (vitamin B-12) [Vitamin B-12] 1,000 mcg Tablet
1,000 mcg PO DAILY
cholecalciferol (vitamin D3) 125 mcg (5,000 unit) Tablet
125 mcg PO DAILY
ascorbic acid (vitamin C) 500 mg Tablet
500 mg PO DAILY
atorvastatin 40 mg tablet
40 mg PO QPM
Held
Skyrizi 360 mg/2.4 mL (150 mg/mL) Wearable Injector
150 mg SC Q8W
Hold Instructions: Resume on 06/13/25. Hold for 2-weeks following Cardiac Surgery.
Discontinued
lisinopril 10 mg Tablet
10 mg PO DAILY
Discharge Orders:
Discharge Patient (As Directed); Ordered 05/31/25
Ordered By: Aura Robin
Care Plan Goals
Care Plan Goals:
Problem: Readiness for enhanced knowledge related to diagnosis and treatment plan
Goal: Understand your diagnosis and treatment plan needs, including medications if applicable.
Instructions: Know your diagnosis, underlying causes and treatment plan options, including medications if applicable. Consult with your health care team to learn about your diagnosis and treatment plan, including medications if applicable.
Discharge Date and Time
Print Language: GEORGIAN
--- NOTE | 2025-05-31 10:57 | W.PN.UPDATE ---
Update Note
Progress Note Update
Pacer site, CXR, tele, EKGs all reviewed and are very good. Manual QRS 120-130 ms, Qr in , manual LVAT (stim to peak R in V6) is less than 80 ms and for underlying LBBB that is excellent. Successful selective LBBB capture. No pacer
complications. Good for home.
[2025-05-31] MEDS: TOPROL XL 12.5 MG PO (11:06)
[2025-05-31] MEDS: NSS IV (11:07)
[2025-05-31] MEDS: TYLENOL 975 MG PO (12:55)
--- NOTE | 2025-05-31 12:57 | PTCARENOTE ---
Pt ambulated in room, walked with cardiac rehab in halls,ron well. Pt is using IS up to 2500. No c/o pain.
--- NOTE | 2025-05-31 13:18 | CM ---
Addendum entered by Kinza Chaparro 05/31/25 13:26:
Transferred to IVU.
Original Note:
Reviewed chart. Met with and Mrs. Roque to review discharge plans. He states he is feeling well and maybe able to go home soon. We reviewed a home visit by the Transitional Care Nurse. He is agreeable to a home visit. Prior to admission
he resides with his spouse in a two story home with one step to enter. He has a full flight of steps to get to bedroom/full bathroom. He has a powder room on the first floor. Prior to admission he was independent with ambulation and adls. He does
not have any DME in the home. He has a prescription plan and uses [facility]. His spouse will be home to assist in his care if needed. The discharge plan is to return home with is spouse and a home visit by the Transitional Care Nurse when
medically stable.
--- NOTE | 2025-05-31 13:59 | PTCARENOTE ---
Pt showered prior to d/c, ron well. D/C instructions reviewed with Pt and his , they expressed understanding.
--- NOTE | 2025-05-31 15:11 | PN.CDI ---
CDI
- -
CDI:
Physician Documentation Request
Admit Date: 05/27/25 05:18
Dear Doctor Carmita,
Patient admitted with aortic valve stenosis with bicuspid morphology, Type 0 s/p Upper hemisternotomy, to [address] [place] [address] with Surgical aortic valve replacement [29 mm bioprosthesis] by Dr. Vizcarra on 05/27/25.
05/16 Hgb 14.3
05/31 Hgb 10.5
Based on the above, could you clarify, in your progress note, which of the following is the most likely diagnosis you are evaluating, monitoring and/or treating?
Acute blood loss anemia
Insignificant abnormal lab finding
Other
Use of terms such as suspected, likely, concern for, or probable (associated with a specific diagnosis that is being evaluated, monitored, or treated as if it exists) are acceptable and can be coded in the inpatient setting, when documented at the
time of discharge.
Thank you,
Eryn ASKEW,RN,CCDS
CDI Specialist
Available via tiger text
Please use your independent medical judgment in providing your response.
== END 2025-05-31 14:05 | disposition home or self-care (01) | DRG 219 ==
LOC: IVU 05:18
PROVIDERS: Anesthesiology; Clinical Nurse Specialist Acute Care; Internal Medicine Cardiovascular Disease; Physician Assistant Medical; ADMITTING PHYSICIAN Thoracic Surgery (Cardiothoracic Vascular Surgery); CONSULT PHYSICIAN Internal Medicine Cardiovascular Disease; CONSULT PHYSICIAN Internal Medicine Critical Care Medicine; FAMILY PHYSICIAN Family Medicine
PROC: 5A1221Z Performance of Cardiac Output, Continuous (ICD-10-PCS; 2025-05-27)
PROC: B24BZZ4 Ultrasonography of Heart with Aorta, Transesophageal (ICD-10-PCS; 2025-05-27)
PROC: 02RF08Z Replacement of Aortic Valve with Zooplastic Tissue, Open Approach (ICD-10-PCS; 2025-05-27)
PROC: 02HK3JZ Insertion of Pacemaker Lead into Right Ventricle, Percutaneous Approach (ICD-10-PCS; 2025-05-30)
PROC: 02H63JZ Insertion of Pacemaker Lead into Right Atrium, Percutaneous Approach (ICD-10-PCS; 2025-05-30)
PROC: 0JH606Z Insertion of Pacemaker, Dual Chamber into Chest Subcutaneous Tissue and Fascia, Open Approach (ICD-10-PCS; 2025-05-30)
PROC: 3E0102A Introduction of Anti-Infective Envelope into Subcutaneous Tissue, Open Approach (ICD-10-PCS; 2025-05-30)
DX: I35.0 Nonrheumatic aortic (valve) stenosis (principal); J95.1 Acute pulmonary insufficiency following thoracic surgery; D62 Acute posthemorrhagic anemia; I44.2 Atrioventricular block, complete; I45.2 Bifascicular block; N17.9 Acute kidney failure, unspecified; E87.21 Acute metabolic acidosis; K50.90 Crohn's disease, unspecified, without complications; I10 Essential (primary) hypertension; E78.00 Pure hypercholesterolemia, unspecified; R00.1 Bradycardia, unspecified; E87.5 Hyperkalemia; E86.1 Hypovolemia; E87.70 Fluid overload, unspecified; D72.829 Elevated white blood cell count, unspecified; Y83.8 Other surgical procedures as the cause of abnormal reaction of the patient, or of later complication, without mention of misadventure at the time of the procedure; I25.10 Atherosclerotic heart disease of native coronary artery without angina pectoris; I27.20 Pulmonary hypertension, unspecified; Z87.891 Personal history of nicotine dependence
CPT/HCPCS: 33208; 36415; 71045; 71046; 80048; 80053; 81003; 81015; 82248; 82330; 82565; 82805; 82810; 82947; 82962; 83036; 83735; 84132; 84302; 84520; 85014; 85018; 85025; 85027; 85049; 85610; 85730; 86803; 86850; 86900; 86901; 86920; 87070; 87086; 88305; 88311; 93005; 93312; 93320; 93325; 93880; 94002; C1769; C1785; C1898; J2916; P9045; Q9967

== ENCOUNTER → 2025-06-03 08:14 | Outpatient (REF) | payer MEDICARE, OTHER, SELFPAY ==
[2025-06-03 09:34] LABS: Blood Urea Nitrogen 13 mg/dl (9-20); Calcium 8.4 mg/dl (8.4-10.2); Carbon Dioxide 25 mmol/L (22-30); Chloride 110 mmol/L (98-107); Glucose 104 mg/dl (70-99); Potassium 5.0 mmol/L (3.5-5.1); Sodium 140 mmol/L (135-145); eGFR > 60.00
== END ==
LOC: REG 08:14
PROVIDERS: ATTENDING PHYSICIAN Thoracic Surgery (Cardiothoracic Vascular Surgery); FAMILY PHYSICIAN Family Medicine
DX: N17.9 Acute kidney failure, unspecified (principal)
CPT/HCPCS: 36415; 80048

== ENCOUNTER → 2025-07-08 08:03 | Outpatient (REF) | payer MEDICARE, OTHER, SELFPAY ==
[2025-07-08 10:17] LABS: Albumin 4.2 g/dl (3.5-5.0); Blood Urea Nitrogen 18 mg/dl (9-20); Calcium 8.9 mg/dl (8.4-10.2); Carbon Dioxide 28 mmol/L (22-30); Chloride 107 mmol/L (98-107); Glucose 97 mg/dl (70-99); Potassium 5.2 mmol/L (3.5-5.1); Sodium 140 mmol/L (135-145); eGFR > 60.00
== END ==
LOC: RCS 08:03
PROVIDERS: ATTENDING PHYSICIAN Internal Medicine Cardiovascular Disease; FAMILY PHYSICIAN Family Medicine
DX: I35.0 Nonrheumatic aortic (valve) stenosis (principal); Z95.2 Presence of prosthetic heart valve; I10 Essential (primary) hypertension
CPT/HCPCS: 36415; 80069; 93306

== ENCOUNTER 2025-07-15 08:32 | Outpatient (RCR) | payer MEDICARE, OTHER, SELFPAY | END 2025-07-15 23:59 | disposition home or self-care (01) | LOC: CRHB 08:32 | PROVIDERS: ATTENDING PHYSICIAN Internal Medicine Cardiovascular Disease | DX: Z95.2 Presence of prosthetic heart valve (principal) | CPT/HCPCS: G0422; G0423 ==

== ENCOUNTER → 2025-07-20 09:08 | Outpatient (REF) | payer MEDICARE, OTHER, SELFPAY ==
[2025-07-20 10:43] LABS: Albumin 4.4 g/dl (3.5-5.0); Blood Urea Nitrogen 14 mg/dl (9-20); Calcium 9.1 mg/dl (8.4-10.2); Carbon Dioxide 26 mmol/L (22-30); Chloride 108 mmol/L (98-107); Glucose 89 mg/dl (70-99); Potassium 4.5 mmol/L (3.5-5.1); Sodium 138 mmol/L (135-145); eGFR > 60.00
== END ==
LOC: REG 09:08
PROVIDERS: ATTENDING PHYSICIAN Internal Medicine Cardiovascular Disease; FAMILY PHYSICIAN Family Medicine
DX: I10 Essential (primary) hypertension (principal)
CPT/HCPCS: 36415; 80069

== ENCOUNTER 2025-08-17 08:52 | Outpatient (RCR) | payer MEDICARE, OTHER, SELFPAY | END 2025-08-17 23:59 | disposition home or self-care (01) | LOC: CRHB 08:52 | PROVIDERS: ATTENDING PHYSICIAN Internal Medicine Cardiovascular Disease | DX: Z95.2 Presence of prosthetic heart valve (principal) | CPT/HCPCS: G0422; G0423 ==